=== PATIENT | male | born 1950 | race Two or more races ===

== ENCOUNTER → 2024-04-30 | Outpatient (CLI) | payer MEDICARE, BC, SELFPAY ==
[2024-04-30 09:51] LABS: Collection Type, Urine Clean Catch; Squamous Epithelial Cell,Urine 0 /hpf (0-5)
[2024-04-30 10:15] LABS: Basophils # (Auto) 0.1 Thou/mm3 (0.0-0.2); Basophils % (Auto) 2 % (0-2.5); Eosinophils # (Auto) 0.3 Thou/mm3 (0.0-0.5); Eosinophils % (Auto) 5 % (0-10); Hematocrit 46.4 % (41.0-53.0); Hemoglobin 15.6 g/dL (13.5-16.0); Immature Granulocytes % (Auto) 0 % (0-0); Immature Granulocytes Auto 0.01 Thou/mm3 (0.00-0.00); Lymphocytes # (Auto) 2.6 Thou/mm3 (1.0-4.8); Lymphocytes % (Auto) 47 % (10-50); Mean Corpuscular HGB Conc 33.6 g/dl (31.0-37.0); Mean Corpuscular Volume 89 fL (80-100); Monocytes # (Auto) 0.5 Thou/mm3 (0.0-0.8); Monocytes % (Auto) 8 % (0-12); Neutrophils # (Auto) 2.2 Thou/mm3 (1.8-7.7); Neutrophils % (Auto) 39 % (37-80); Nucleated Red Blood Cell % 0 /100 WBC (0); Platelet Count 197 Thou/mm3 (140-440); RDW Standard Deviation 46.8 fL (35.1-43.9); White Blood Count 5.7 Thou/mm3 (3.8-10.6)
[2024-04-30 10:29] LABS: Glucose Estimated Average 120 mg/dL (80-131); Hemoglobin A1C 5.8 % Hgb (4.8-6.0)
[2024-04-30 10:30] LABS: Bilirubin,Urine Negative (Negative); Blood,Urine Negative (Negative); Clarity,Urine Clear (Clear/Hazy); Color,Urine Lt-Yellow (Lt Yel-Yel); Glucose, Urine Negative (Negative); Ketones,Urine Negative (Negative); Leukocyte Esterase,Urine Negative (Negative); Nitrite,Urine Negative (Negative); Protein,Urine Negative (Neg - Trace); RBC,Urine 1 /hpf (0-3); Specific Gravity,Urine 1.015 (1.001-1.035); Urobilinogen,Urine Negative mg/dL (0.0-1.0); WBC,Urine < 1 /hpf (0-5)
[2024-04-30 10:31] LABS: PSA Medicare Annual Scrn 1.24 ng/mL (0-4.00)
[2024-04-30 10:48] LABS: Alanine Aminotransferase 30 U/L (10-49); Albumin/Globulin Ratio 2.1 (1.2-2.2); Anion Gap 8 (7-16); Aspartate Amino Transferase 30 U/L (0-34); BUN/Creatinine Ratio 16 Ratio (12-20); Bilirubin,Total 0.7 mg/dL (0.3-1.2); Blood Urea Nitrogen 19 mg/dL (9-23); Calcium 10.5 mg/dL (8.3-10.6); Calcium (Corrected) 10.5 mg/dL (8.5-10.1); Carbon Dioxide 28.8 mMol/L (20.0-31.0); Cardiac Risk Estimate 4.5 RATIO (4.0-6.7); Chloride 103 mMol/L (98-107); Cholesterol 161 mg/dL (132-200); Creatinine (Component) 1.2 mg/dL (0.6-1.3); Globulin 2.4 gm/dL (2.3-3.5); Glucose 106 mg/dL (74-106); HDL Cholesterol 36 mg/dL (40-60); LDL Cholesterol,Calculated 94 mg/dL (0-130); Osmolality,Calculated 281 (275-295); Potassium 4.4 mMol/L (3.4-5.1); Sodium 140 mMol/L (136-145); Thyroid Stimulating Hormone 2.92 uIU/mL (0.55-4.78); Total Protein 7.4 gm/dL (5.7-8.2); Triglycerides 156 mg/dL (30-150); eGFR > 60 See Note
[2024-04-30 11:30] LABS: Alkaline Phosphatase 48 U/L (46-116)
== END | disposition home or self-care (01) ==
PROVIDERS: PCP Internal Medicine; Referring Provider Internal Medicine; Visit Provider Internal Medicine
DX: I10 Essential (primary) hypertension (principal); E03.9 Hypothyroidism, unspecified; E78.5 Hyperlipidemia, unspecified; R73.09 Other abnormal glucose
CPT/HCPCS: 36415; 80053; 80061; 81001; 83036; 84153; 84443; 85025; G0103

== ENCOUNTER → 2024-05-15 | Outpatient (CLI) | payer MEDICARE, BC, SELFPAY ==
[2024-05-15 09:56] LABS: Vitamin D 25 Hydroxy Total 25.3 ng/mL (7.3-40.2)
[2024-05-15 10:01] LABS: Albumin, Serum 4.8 gm/dL (3.4-4.8); Anion Gap 8 (7-16); BUN/Creatinine Ratio 16 Ratio (12-20); Blood Urea Nitrogen 18 mg/dL (9-23); Calcium 9.9 mg/dL (8.3-10.6); Calcium (Corrected) 9.9 mg/dL (8.5-10.1); Carbon Dioxide 28.4 mMol/L (20.0-31.0); Chloride 105 mMol/L (98-107); Creatinine (Component) 1.1 mg/dL (0.6-1.3); Glucose 99 mg/dL (74-106); Osmolality,Calculated 283 (275-295); Phosphorous 3.1 mg/dL (2.4-5.1); Potassium 3.8 mMol/L (3.4-5.1); Sodium 141 mMol/L (136-145); eGFR > 60 See Note
== END | disposition home or self-care (01) ==
LOC: COPL 08:51
PROVIDERS: PCP Internal Medicine; Referring Provider Internal Medicine; Visit Provider Internal Medicine
DX: E83.52 Hypercalcemia (principal); E55.9 Vitamin D deficiency, unspecified
CPT/HCPCS: 36415; 80069; 82306; 83970

== ENCOUNTER → 2024-09-09 | Outpatient (CLI) | payer MEDICARE, BC, SELFPAY ==
--- NOTE | 2024-09-09 09:40 | XR_ITS ---
Examination: Abdomen AP single view Technique: AP portable supine abdomen, single view Exam date and time: September 09, 2024 0954 hours INDICATIONS: Nausea beginning 2 weeks ago. FINDINGS: Moderate stool throughout the colon. No obstruction. No free air. The osseous structures are intact IMPRESSION: Nonobstructive bowel gas pattern
[2024-09-09 11:36] LABS: Collection Type, Urine Clean Catch; Squamous Epithelial Cell,Urine 0 /hpf (0-5)
[2024-09-09 12:18] LABS: Bilirubin,Urine Negative (Negative); Blood,Urine Negative (Negative); Clarity,Urine Clear (Clear/Hazy); Color,Urine Lt-Yellow (Lt Yel-Yel); Glucose, Urine Negative (Negative); Ketones,Urine Negative (Negative); Leukocyte Esterase,Urine Negative (Negative); Nitrite,Urine Negative (Negative); PH,Urine 6.0 (5.0-7.0); Protein,Urine Negative (Neg - Trace); RBC,Urine 1 /hpf (0-3); Specific Gravity,Urine 1.014 (1.001-1.035); Urobilinogen,Urine Negative mg/dL (0.0-1.0); WBC,Urine 1 /hpf (0-5)
[2024-09-09 12:23] LABS: Alanine Aminotransferase 12 U/L (10-49); Albumin, Serum 4.7 gm/dL (3.4-4.8); Albumin/Globulin Ratio 1.7 (1.2-2.2); Alkaline Phosphatase 45 U/L (46-116); Amylase 79 U/L (30-118); Anion Gap 8 (7-16); Aspartate Amino Transferase 19 U/L (0-34); BUN/Creatinine Ratio 12 Ratio (12-20); Basophils # (Auto) 0.1 Thou/mm3 (0.0-0.2); Basophils % (Auto) 2 % (0-2.5); Bilirubin,Total 0.7 mg/dL (0.3-1.2); Blood Urea Nitrogen 13 mg/dL (9-23); Calcium 9.6 mg/dL (8.3-10.6); Calcium (Corrected) 9.6 mg/dL (8.5-10.1); Carbon Dioxide 28.4 mMol/L (20.0-31.0); Chloride 103 mMol/L (98-107); Creatinine (Component) 1.1 mg/dL (0.6-1.3); Eosinophils # (Auto) 0.2 Thou/mm3 (0.0-0.5); Eosinophils % (Auto) 4 % (0-10); Globulin 2.8 gm/dL (2.3-3.5); Glucose 99 mg/dL (74-106); Hematocrit 42.8 % (41.0-53.0); Hemoglobin 14.4 g/dL (13.5-16.0); Immature Granulocytes Auto 0.01 Thou/mm3 (0.00-0.00); Lipase 56 U/L (12-53); Lymphocytes # (Auto) 2.0 Thou/mm3 (1.0-4.8); Lymphocytes % (Auto) 38 % (10-50); Mean Corpuscular HGB Conc 33.6 g/dl (31.0-37.0); Mean Corpuscular Hemoglobin 29.4 pg (25.0-35.0); Mean Corpuscular Volume 88 fL (80-100); Monocytes # (Auto) 0.4 Thou/mm3 (0.0-0.8); Monocytes % (Auto) 8 % (0-12); Neutrophils # (Auto) 2.6 Thou/mm3 (1.8-7.7); Neutrophils % (Auto) 48 % (37-80); Nucleated Red Blood Cell # 0.00 Thou/mm3 (0.00-0.00); Nucleated Red Blood Cell % 0 /100 WBC (0); Osmolality,Calculated 277 (275-295); Platelet Count 259 Thou/mm3 (140-440); Potassium 4.0 mMol/L (3.4-5.1); RDW Standard Deviation 43.2 fL (35.1-43.9); Red Blood Count 4.89 Miln/mm3 (4.50-5.90); Sodium 139 mMol/L (136-145); Total Protein 7.5 gm/dL (5.7-8.2); White Blood Count 5.4 Thou/mm3 (3.8-10.6); eGFR > 60 See Note
== END | disposition home or self-care (01) ==
PROVIDERS: PCP Internal Medicine; Referring Provider Specialist; Visit Provider Radiology Diagnostic Radiology
DX: R11.0 Nausea (principal); R10.32 Left lower quadrant pain; R14.0 Abdominal distension (gaseous); R10.31 Right lower quadrant pain
CPT/HCPCS: 36415; 74018; 80053; 81001; 82150; 83690; 85025

== ENCOUNTER 2024-10-08 09:10 | Outpatient (RCR) | payer MEDICARE, BC, SELFPAY ==
--- NOTE | 2024-10-08 10:00 | XR_ITS ---
Examination: HIDA, hepatobiliary radioisotope scan Gallbladder ejection fraction study. Date and time of exam: October 08, 2024 0927 hours INDICATIONS: Upper abdominal pain and pressure beginning August 2024, hypertension Technique: 5.8 mCi of 99M Hepatolite administered. Serial imaging then obtained from immediate through 60 minutes. 1.1 mcg selective catheter Kinevac administered for gallbladder ejection fraction study. Findings: Radioisotope activity within the liver is reasonably homogenous. Gallbladder, common bile duct small bowel activity noted Impression: Gallbladder activity Normal gallbladder ejection fraction 57%
== END 2024-10-13 23:59 | disposition home or self-care (01) ==
LOC: SNUC 09:10
PROVIDERS: PCP Internal Medicine; Referring Provider Specialist; Visit Provider Specialist
DX: R10.32 Left lower quadrant pain (principal); R14.0 Abdominal distension (gaseous); R11.0 Nausea; R10.10 Upper abdominal pain, unspecified
CPT/HCPCS: 78227; A9537; J2805

== ENCOUNTER → 2024-10-17 | Outpatient (CLI) | payer MEDICARE, BC, SELFPAY ==
--- NOTE | 2024-10-17 13:47 | XR_ITS ---
Examination: Abdomen AP single view Technique: AP portable supine abdomen, single view Exam date and time: October 17, 2024 1439 hours INDICATIONS: Abdominal pain and distention beginning 2 months ago. FINDINGS: Moderate stool throughout the colon No obstruction No free air No renal or ureteral calculi The osseous structures are intact with mild narrowing hip joints IMPRESSION: Nonobstructive bowel gas pattern
== END | disposition home or self-care (01) ==
PROVIDERS: PCP Internal Medicine; Referring Provider Specialist; Visit Provider Specialist
DX: R14.0 Abdominal distension (gaseous) (principal); R10.13 Epigastric pain
CPT/HCPCS: 74018

== ENCOUNTER → 2024-10-25 | Outpatient (CLI) | payer MEDICARE, BC, SELFPAY ==
[2024-10-25 09:46] LABS: Basophils # (Auto) 0.1 Thou/mm3 (0.0-0.2); Basophils % (Auto) 1 % (0-2.5); Eosinophils # (Auto) 0.3 Thou/mm3 (0.0-0.5); Eosinophils % (Auto) 4 % (0-10); Hematocrit 42.6 % (41.0-53.0); Hemoglobin 14.1 g/dL (13.5-16.0); Immature Granulocytes Auto 0.01 Thou/mm3 (0.00-0.00); Lymphocytes # (Auto) 2.2 Thou/mm3 (1.0-4.8); Lymphocytes % (Auto) 34 % (10-50); Mean Corpuscular HGB Conc 33.1 g/dl (31.0-37.0); Mean Corpuscular Hemoglobin 29.1 pg (25.0-35.0); Mean Corpuscular Volume 88 fL (80-100); Monocytes # (Auto) 0.7 Thou/mm3 (0.0-0.8); Monocytes % (Auto) 10 % (0-12); Neutrophils # (Auto) 3.3 Thou/mm3 (1.8-7.7); Neutrophils % (Auto) 50 % (37-80); Nucleated Red Blood Cell # 0.00 Thou/mm3 (0.00-0.00); Nucleated Red Blood Cell % 0 /100 WBC (0); Platelet Count 230 Thou/mm3 (140-440); RDW Standard Deviation 47.0 fL (35.1-43.9); Red Blood Count 4.84 Miln/mm3 (4.50-5.90); White Blood Count 6.6 Thou/mm3 (3.8-10.6)
[2024-10-25 09:52] LABS: Collection Type, Urine Clean Catch; Squamous Epithelial Cell,Urine 0 /hpf (0-5)
[2024-10-25 09:54] LABS: Glucose Estimated Average 131 mg/dL (80-131); Hemoglobin A1C 6.2 % Hgb (4.8-6.0)
[2024-10-25 09:58] LABS: PSA Medicare Annual Scrn 1.52 ng/mL (0-4.00)
[2024-10-25 10:16] LABS: Alanine Aminotransferase 16 U/L (10-49); Albumin, Serum 4.9 gm/dL (3.4-4.8); Albumin/Globulin Ratio 1.7 (1.2-2.2); Alkaline Phosphatase 48 U/L (46-116); Anion Gap 9 (7-16); Aspartate Amino Transferase 24 U/L (0-34); BUN/Creatinine Ratio 11 Ratio (12-20); Bilirubin,Total 0.8 mg/dL (0.3-1.2); Blood Urea Nitrogen 12 mg/dL (9-23); Calcium 10.2 mg/dL (8.3-10.6); Calcium (Corrected) 10.2 mg/dL (8.5-10.1); Carbon Dioxide 27.8 mMol/L (20.0-31.0); Chloride 103 mMol/L (98-107); Creatinine (Component) 1.1 mg/dL (0.6-1.3); Globulin 2.9 gm/dL (2.3-3.5); Glucose 100 mg/dL (74-106); Osmolality,Calculated 279 (275-295); Potassium 4.6 mMol/L (3.4-5.1); Sodium 140 mMol/L (136-145); Thyroid Stimulating Hormone 0.28 uIU/mL (0.55-4.78); Total Protein 7.8 gm/dL (5.7-8.2); eGFR > 60 See Note
[2024-10-25 10:28] LABS: Cardiac Risk Estimate 4.0 RATIO (4.0-6.7); Cholesterol 119 mg/dL (132-200); HDL Cholesterol 30 mg/dL (40-60); LDL Cholesterol,Calculated 66 mg/dL (0-130); Triglycerides 117 mg/dL (30-150)
[2024-10-25 10:46] LABS: Bilirubin,Urine Negative (Negative); Blood,Urine Negative (Negative); Clarity,Urine Clear (Clear/Hazy); Color,Urine Lt-Yellow (Lt Yel-Yel); Glucose, Urine Negative (Negative); Ketones,Urine Negative (Negative); Leukocyte Esterase,Urine Negative (Negative); Nitrite,Urine Negative (Negative); PH,Urine 6.0 (5.0-7.0); Protein,Urine Negative (Neg - Trace); RBC,Urine 2 /hpf (0-3); Specific Gravity,Urine 1.021 (1.001-1.035); Urobilinogen,Urine Negative mg/dL (0.0-1.0); WBC,Urine 1 /hpf (0-5)
== END | disposition home or self-care (01) ==
LOC: COPL 08:56
PROVIDERS: PCP Internal Medicine; Referring Provider Specialist; Visit Provider Specialist
DX: I10 Essential (primary) hypertension (principal); E78.5 Hyperlipidemia, unspecified; E03.9 Hypothyroidism, unspecified; R73.09 Other abnormal glucose; Z12.5 Encounter for screening for malignant neoplasm of prostate
CPT/HCPCS: 36415; 80053; 80061; 81001; 83036; 84153; 84443; 85025; G0103

== ENCOUNTER → 2024-11-12 | Outpatient (CLI) | payer MEDICARE, BC, SELFPAY ==
--- NOTE | 2024-11-12 09:00 | XR_ITS ---
Examination: CT abdomen with intravenous contrast CT pelvis with intravenous contrast 2-D coronal reconstructions 2-D sagittal reconstructions Date and time of exam:November 12, 2024 0912 hours INDICATIONS: Epigastric pain beginning August 2024. CTDI: vol (mGy) 4.96 DLP: (mGycm) 289 Technique: Multiple axial sections of the abdomen and pelvis have been obtained. 64 slice high-resolution scanner used. 3 mm axial sections have been obtained, post intravenous injection 60 cc Isovue-370. 2-D sagittal, coronal reconstructions obtained. Low dose protocols were performed. One or more of the following dose reduction techniques were used; automated exposure control, adjustment of the mA and/or KV according to patient size, use of iterative reconstruction technique. Findings: No focal liver lesions No gallstones Mucosal is thickened in the stomach including antrum No pancreatic or adrenal mass No renal or ureteral calculi, no hydronephrosis Aortic calcification no aneurysmal dilatation No pericecal inflammatory change Colonic diverticulosis. Wall thickening in the sigmoid colon Transverse prostate dimension 5.8 cm. Enhancement in the central prostate 22 mm Contracted urinary bladder Advanced degenerative disc disease L5-S1 IMPRESSION: Gastritis pattern, clinical correlation advised No renal or ureteral calculi, no hydronephrosis Mild wall thickening the sigmoid colon, consider nonspecific colitis Moderate prostatomegaly, enhancement in the central prostate 22 mm, recommend correlation with PSA and consider transient rectal prostate sonography follow-up
== END | disposition home or self-care (01) ==
LOC: CCTX 08:17
PROVIDERS: PCP Internal Medicine; Referring Provider Specialist; Visit Provider Specialist
DX: K63.89 Other specified diseases of intestine (principal); N40.0 Benign prostatic hyperplasia without lower urinary tract symptoms
CPT/HCPCS: 74177; A4649; Q9967

== ENCOUNTER 2024-12-15 10:52 | Inpatient (IN) | payer MEDICARE, BC, SELFPAY ==
[2024-12-15] VITALS (8 sets, daily range): BP systolic 97–127; BP diastolic 64–77; PULSE 84–97; RESP 16–99; TEMP 36.6–36.7; O2SAT 98–99; BMI 19.3
--- NOTE | 2024-12-15 11:07 | EKG_ITS ---
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
--- NOTE | 2024-12-15 11:31 | EDNOTE_ITS ---
ED General RME/HPI General Chief complaint: Fever Stated complaint: FEVER/CHEST PAIN X 3 DAYS, UNABLE TO SLEEP Time Seen by Provider: 12/15/24 11:22 Arrival date/time: 12/15/24 10:52 RME / HPI RME / HPI narrative: Krunal is a 73 y/o male with PMHx of HTN and hypothyroidism? who comes in for evaluation of constant epigastric pain radiating to upper chest bilaterally, onset , with associated subjective fever, acid reflux and shortness of breath, has never happened before, slightly improved with ibuprofen for 1 day. Patient reports that he began to feel acid reflux on and has begun to develop a fever. To combat his pain, he decided to take ibuprofen which he said it improved for 1 day, however he has been taking ibuprofen 400 mg once to twice a day at this point and has not helped much. He says that he gets more short of breath on exertion, however he is unsure if he gets chest pain on exertion. 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 He says that he believes he is getting sick. He does not use oxygen at home. He has never had a heart attack. He has no family history of cardiac problems. He says he has been dealing with acid reflux for years. Denies any headache, numbness, tingling. He stopped drinking a very long time ago, no smoking history and does not do oral or IV drugs. He has never been told he has had a murmur. No other complaints at this time. Related Data Home Medications ?Medication ?Instructions ?Recorded ?Confirmed fenofibrate 160 mg tablet 160 mg PO QDAY 03/28/2303/07 levothyroxine 125 mcg tablet 125 mcg PO QDAY 03/28/23 03/28/23 losartan 25 mg tablet 25 mg PO QDAY 03/28/2303/28 Allergies Allergy/AdvReac Type Severity Reaction Status Date / Time No Known Allergies Allergy Verified 12/15/24 10:54 Review of Systems Review of Systems Narrative Review of Systems: 12 point ROS reviewed and is otherwise negative unless stated directly in the HPI ED Exam Narrative Physical exam: General: AAOx3, NAD, pleasant male, wears glasses HEENT: Moist mucous membranes, conjunctiva clear, EOMI, PERRLA, Cardiovascular: S1, S2, radial pulses +2 bilat, RRR, no murmur appreciated, no reproduction of chest pain upon palpation in bilateral anterior chest Pulmonary: CTAB bilat no cough, no wheezing GI: No tenderness to light or deep palpitation, no guarding, rigidity, rebound tenderness or distension Extremities: No presence of trace or pitting edema in lower extremities bilaterally, dorsalis pedis pulses +2 bilaterally Neuro: AAOx3, no focal motor or sensory deficits in the UE or LE bilat Psych: Good judgement, thought and behavior Course Quality Measures none Orders Category Date Time Status Bedside COVID-19 Antigen Test NOW Care 12/15/24 11:53 Active COVID-19 Screening Questionnaire NOW Care 12/15/24 13:25 Active EKG (ED ONLY) *Do not use* NOW Care 12/15/24 11:07 Completed EKG (ED ONLY) *Do not use* NOW Care 12/15/24 12:58 Completed Insert IV NOW Care 12/15/24 11:53 Active Consult to Cardiology Stat Cons 12/15/24 11:[address] abdomen pelvis wo con Stat Exams 12/15/24 13:17 Completed EKG (ED Only) Stat Exams 12/15/24 11:07 Draft EKG (ED Only) Stat Exams 12/15/24 12:58 Draft XR chest 1V portable Stat Exams 12/15/24 11:55 Completed C-Reactive Protein Stat Lab 12/15/24 12:05 Completed CBC Stat Lab 12/15/24 12:05 Completed CMP [Comprehensive Metabolic Panel] Stat Lab 12/15/24 12:05 Completed ESR [Sed Rate (ESR)] Stat Lab 12/15/24 12:05 Completed Influenza A & B Rapid Panel Stat Lab 12/15/24 12:17 Completed Lactic Acid [Lactate (Lactic Acid)] Stat Lab 12/15/24 12:05 Results Lactic Acid [Lactate (Lactic Acid)] Stat Lab 12/15/24 18:00 Ordered Lipase Stat Lab 12/15/24 12:05 Completed TSH [Thyroid Stimulating Hormone] Stat Lab 12/15/24 12:05 Completed Troponin I Stat Lab 12/15/24 12:05 Completed Troponin I Stat Lab 12/15/24 18:00 Ordered Famotidine Inj [Pepcid Inj] Med 12/15/24 13:03 Discontinued 20 mg IVP X1 ONE Ibuprofen Tab [Motrin Tab] Med 12/15/24 11:54 Discontinued 600 mg PO X1 ONE Pantoprazole [Protonix] Med 12/15/24 11:54 Discontinued 40 mg PO X1 ONE Sodium Chloride 0.9% 1000 ml [Ns] 1,000 ml Med 12/15/24 12:36 Discontinued IV 999 mls/hr mg Hyd/Al Hyd/Jayleen Susp [Maalox Susp] Med 12/15/24 13:03 Discontinued 30 ml PO X1 ONE Vital Signs Vital signs: Vital Signs Temperature 98.1 F 12/15/24 11:28 Pulse Rate 88 12/15/24 11:28 Respiratory Rate 16 12/15/24 11:28 Blood Pressure 127/74 12/15/24 11:28 Pulse Oximetry (%) 98 12/15/24 11:28 Oxygen Delivery Method Room Air 12/15/24 11:28 Discharge Plan Plan Patient Disposition: Admit Acute Care w/in Hospital Problem List Clinical Impression: Pericarditis MDM Narrative MDM hospital course (for use when minimal MDM required): 1200: Reviewed EKG which shows possible ST elevations in V2 and V3, in lead II there could be ST elevations, however there is no baseline EKG to compare this one to. We spoke with cardiology who recommends admission for rule out pericarditis. Will order basic labs including troponin, chest x-ray, and initiate ibuprofen and pantoprazole at this time. Due to patient's story, acute pericarditis will need to be ruled out, however patient's cardiac history is unknown as he has never gotten cardiac workup and has never seen a printer small print shop in the past. Patient is not complaining of intense chest pain at this time. Teto morrow does not have reproducible chest pain which is also concerning. 1308: Ordered repeat EKG. 1310: Spoke with primary hospitalist team who will review and discuss case for admission. 1317: Hospitalist team requesting abdomen pelvis CT for further evaluation of abdominal pain and lactic acidosis. 1359: CT Abd/pelvis w/o contrast shows possible pericardial effusion 27mm. Hospitalist team accepts patient for admission. EKG Interpretation EKG #1: EKG Interpretation: Sinus rhythm, heart rate 92, QT 315, possible ST elevations in V2, V3, V4, and lead 2 Medication Administration(s) Medication Administration History Acetaminophen (Acetaminophen 325 Mg Tablet) 650 mg PO Q6H PRN PRN Reason: Fever >100.4 or pain Stop: 01/14/25 13:58 Heparin Sodium (Porcine) (Heparin Sod Inj 5000 Unit/Ml Vial) 5,000 unit SC Q8HR ERICA Stop: 12/29/24 14:09 Ondansetron HCl (Ondansetron Inj 2 Mg/Ml Inj 2 Ml) 4 mg IVP Q6H PRN; Protocol PRN Reason: NAUSEA OR VOMITING Stop: 01/14/25 13:58 Sennosides (Senna Tablet) 1 tab PO QDAY PRN; Protocol PRN Reason: constipation Stop: 01/14/25 13:58 Discontinued Medications Al Hydrox/Mg Hydrox/Simethicone (Mg Hyd/Al Hyd/Jayleen (Maalox Reg) Susp 30 Ml Udc) 30 ml PO X1 ONE Stop: 12/15/24 13:04 Last Admin: 12/15/24 13:26 Dose: 30 ml Documented By: BD Famotidine (Famotidine Inj 10 Mg/Ml Vial 2 Ml) 20 mg IVP X1 ONE Stop: 12/15/24 13:04 Last Admin: 12/15/24 13:26 Dose: 20 mg Documented By: BD Sodium Chloride (Ns) 1,000 mls @ 999 mls/hr IV .Q1H1M ONE Stop: 12/15/24 13:36 Last Admin: 12/15/24 13:26 Dose: 999 mls/hr Documented By: BD Ibuprofen (Ibuprofen Tab 600 Mg Tablet) 600 mg PO X1 ONE Stop: 12/15/24 11:55 Last Admin: 12/15/24 12:01 Dose: 600 mg Documented By: GM Pantoprazole Sodium (Pantoprazole 40 Mg Tablet) 40 mg PO X1 ONE Stop: 12/15/24 11:55 Last Admin: 12/15/24 12:00 Dose: 40 mg Documented By: GM Consultations/Discussions re: Management Consult #1: Date/time: 12/15/24 1:10 pm Physician, specialty, service, details: 1200: We spoke with cardiology who recommends admission for rule out pericarditis Consult #2: Date/time: 12/15/24 1:11 pm Physician, specialty, service, details: 1310: Spoke with primary hospitalist team who reviewed case and discussed case for admission. 1317: Hospitalist team requesting abdomen pelvis CT for further evaluation of abdominal pain and lactic acidosis. 1359: Hospitalist team accepts patient for admission. Diagnosis Diagnoses ruled out and/or further discussions: Atypical chest pain, pericarditis, costochondritis, ACS, pulmonary embolus,
--- NOTE | 2024-12-15 11:55 | XR_ITS ---
EXAMINATION: AP chest single view TECHNIQUE: AP portable semiupright chest single view Date and time: December 15, 2024, 1201 hours INDICATIONS: Chest pain today. FINDINGS: Minor prominence left ventricle No pneumonia or pulmonary edema. The osseous structures are intact IMPRESSION: No active disease
[2024-12-15] MEDS: PANTOPRAZOLE 40 MG TABLET PO (12:00)
[2024-12-15] MEDS: IBUPROFEN TAB 600 MG TABLET PO (12:01)
[2024-12-15 12:23] LABS: Lactate (Lactic Acid) 2.1 mMol/L (0.4-2.0)
[2024-12-15 12:49] LABS: Influenza A Ag Negative; Influenza B Ag Negative
[2024-12-15 12:49] LABS: Alanine Aminotransferase 18 U/L (10-49); Albumin, Serum 4.5 gm/dL (3.4-4.8); Albumin/Globulin Ratio 1.5 (1.2-2.2); Alkaline Phosphatase 41 U/L (46-116); Anion Gap 12 (7-16); Aspartate Amino Transferase 24 U/L (0-34); BUN/Creatinine Ratio 20 Ratio (12-20); Basophils # (Auto) 0.0 Thou/mm3 (0.0-0.2); Basophils % (Auto) 0 % (0-2.5); Bilirubin,Total 0.8 mg/dL (0.3-1.2); Blood Urea Nitrogen 32 mg/dL (9-23); Calcium 9.5 mg/dL (8.3-10.6); Calcium (Corrected) 9.5 mg/dL (8.5-10.1); Carbon Dioxide 20.7 mMol/L (20.0-31.0); Chloride 98 mMol/L (98-107); Creatinine (Component) 1.6 mg/dL (0.6-1.3); Eosinophils # (Auto) 0.3 Thou/mm3 (0.0-0.5); Eosinophils % (Auto) 3 % (0-10); Estimated Creatinine Clearance 31.7 mL/min (>60); Globulin 3.0 gm/dL (2.3-3.5); Glucose 109 mg/dL (74-106); Hematocrit 37.8 % (41.0-53.0); Hemoglobin 12.9 g/dL (13.5-16.0); Immature Granulocytes Auto 0.04 Thou/mm3 (0.00-0.00); Lipase 61 U/L (12-53); Lymphocytes # (Auto) 1.5 Thou/mm3 (1.0-4.8); Lymphocytes % (Auto) 15 % (10-50); Mean Corpuscular HGB Conc 34.1 g/dl (31.0-37.0); Mean Corpuscular Hemoglobin 28.3 pg (25.0-35.0); Mean Corpuscular Volume 83 fL (80-100); Monocytes # (Auto) 1.0 Thou/mm3 (0.0-0.8); Monocytes % (Auto) 10 % (0-12); Neutrophils # (Auto) 7.2 Thou/mm3 (1.8-7.7); Neutrophils % (Auto) 71 % (37-80); Nucleated Red Blood Cell # 0.00 Thou/mm3 (0.00-0.00); Nucleated Red Blood Cell % 0 /100 WBC (0); Osmolality,Calculated 270 (275-295); Platelet Count 227 Thou/mm3 (140-440); Potassium 3.5 mMol/L (3.4-5.1); RDW Standard Deviation 46.3 fL (35.1-43.9); Red Blood Count 4.56 Miln/mm3 (4.50-5.90); Sodium 131 mMol/L (136-145); Thyroid Stimulating Hormone 0.71 uIU/mL (0.55-4.78); Total Protein 7.5 gm/dL (5.7-8.2); Troponin I < 0.020 ng/mL (0.0-0.045); White Blood Count 10.0 Thou/mm3 (3.8-10.6); eGFR 45 See Note
--- NOTE | 2024-12-15 12:58 | EKG_ITS ---
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
--- NOTE | 2024-12-15 13:17 | XR_ITS ---
Examination: CT abdomen and pelvis without contrast. Coronal 3-D reconstructions. Sagittal 2-D reconstructions. Date and time of exam: December 15, 2024, 1356 hours, comparison 11/12/2024 INDICATIONS: Epigastric pain today CTDI: vol (mGy): 6.24 DLP: (mGycm): 346 Technique: Axial images of the abdomen have been obtained, 3 mm slice thickness Intravenous contrast material has not been administered. Low dose protocols were performed. One or more of the following dose reduction techniques were used; automated exposure control, adjustment of the mA and/or KV according to patient size, use of iterative reconstruction technique. Findings: Pericardial effusion measuring up to 27 mm No visualized liver or splenic lesion No gallstones No pancreatic or adrenal mass. No renal or ureteral calculi Aorta normal size Normal appendix Colonic diverticulosis, no diverticulitis Urinary bladder intact Marked prostatomegaly transverse dimension 5.8 cm No definite diverticulitis Prominent osteopenia IMPRESSION: Pericardial effusion No pancreatic edema No renal or ureteral calculi, no hydronephrosis No CT findings of appendicitis bowel obstruction or diverticulitis
[2024-12-15] MEDS: FAMOTIDINE INJ 10 MG/ML VIAL 2 ML 20 MG IVP (13:26)
[2024-12-15] MEDS: MG HYD/AL HYD/SIME (Maalox Reg) SUSP 30 ML UDC PO (13:26)
[2024-12-15] MEDS: SODIUM CHLORIDE 0.9% 1000 ML 1,000 ML 999 ML IV (13:26)
--- NOTE | 2024-12-15 14:12 | ESHP_ITS ---
<Statement entered by Gabe Venegas MD - 12/15/24 18:55> I have discussed and was present for the essential components of the history, physical examination, diagnosis, and treatment plan with the resident. I agree with the patient's care as documented by the resident and amended herein by me. Gabe Venegas MD FACP. Documentation for date of: 12/15/24 Senior resident attestation: Mr. Arthur is a 73-year-old male who presented to the ER complaining of epigastric discomfort and fever which started Monday. He also reported shortness of breath on exertion associated with pain. EKG was concerning for diffuse ST segment elevations in all leads, absence of reciprocal changes, ER consulted chief librarian branch or department Dr. Sifuentes who recommended admission the patient for management of possible acute pericarditis. Other problems of note include acute kidney injury, slight lactic acidosis. Bedside echocardiogram showed moderate pericardial effusion, good LV contractility. CT abdomen pelvis was done to evaluate for intra-abdominal source of fever in the setting of slightly elevated lactic acid and lipase. CT shows 27 mm pericardial effusion. No evidence of pancreatitis. Noted elevated ESR and CRP, patient received 1 dose of ibuprofen 600 mg in the ER, he has also been taking ibuprofen at home for the past 3 days with some relief of symptoms. Added colchicine 0.6 mg daily, will avoid loading dose due to concern for worsening KORIN. #Acute pericarditis ? possibly due to viral illness, negative troponins, pending BNP, trend CRP daily, holding off on ibuprofen due to concern for KORIN, colchicine 0.6 mg daily. #Hypoosmolar hyponatremia? sodium 131, in the setting of acute kidney injury, will trend serum sodium, no mental status changes, continue to observe, urinalysis and urine electrolytes ordered. #History of hypothyroidism #History of hypertension #History hyperlipidemia Patient evaluated and examined at the bedside, plan of care discussed with rest of the team including my attending physician, except as noted. Quresh PGY3 HPI History of Present Illness Chief complaint: chest tightness and abdominal pain History of present illness: Kassie Johnson 73M pmhx significant for HTN, HLD, and hypothyroidism who presents to [facility] ED 12/15 for worsening abdominal pain, chest tightness and SOB. Patient reports since 12/11 has been experiencing chest tightness and shortness of breath on short distances with 3 days of fever. Describes pain as tightness over bilateral chest, worsening on deep inspiration with pain felt on L chest but not positional dependent. Initially pain resolved with ibuprofen 400 mg, but later stopped working. Denies exacerbation while laying flat or relief while sitting up or bending over or reproducible with palpation. Denies any recent illness or travel. Denies urinary symptoms, N/V, diarrhea or URI symptoms. Reports abdominal pain with gas since 09/2024 that has progressively gotten worse, and last night unable to sleep due to the pain. Tried OTC stomach medications, none have helped. Last EGD a year ago, was told he had two growths that were normal. Currently, patient endorses chest tightness and abdominal pain. Denies fever of chills. PMHx: as above Surgical Hx: bilateral cataract surgery FHx: No familial cardiac disease, sister breast CA, brother prostate CA, brother esophageal CA Social Hx: denies tobacco and recreational/illicit drug use. Occasional alcohol use in teens. Allergies: NKDA Medications: Losartan 25 mg QD, levothyroxine 112 mcg QD, fenofibrate 160 mg QD, latanoprost 0.005% drops both eyes qhs, dorzolamide-timolol ophthal solution in both eyes BID In ED, BP 127/74 HR 88, RR 16, afebrile, satting 98% RA, WBC 10, Hgb 12.9, ESR 119, CRP >10, Na 131, K 3.5, BUN 32, Cr 1.6 (BL 1.1), lactic 2.1, trops neg, lipase 61, TSH 0.71 wnl . In ED, given 1L NS, Maalox, pantoprazole 40 mg x1, famotidine 20 mg x1 and ibuprofen 600 mg x1. EKG shows diffuse ST segment elevation in all leads. CXR no active disease. CTAP 27mm pericardial effusion, no pancreatic edema, no renal or uretral calculi, no hydronephrosis, no CT findings of appendicitis, bowel obstruction or diverticulitis. Patient was admitted for further workup for chest tightness with concern for pericarditis. Review of Systems Review of Systems Systems Reviewed: All systems reviewed, normal except as documented Exam Vital Signs Temp Pulse Resp BP Pulse Ox O2 Del Method 97.9 F 85 19 112/72 98 Room Air 12/15/24 12:02 12/15/24 12:02 12/15/24 12:02 12/15/24 12:02 12/15/24 11:28 12/15/24 12:02 Narrative Exam GENERAL: AOx3, no acute distress, shallow breathing due to pain HEENT: mucous membranes moist, bilateral sclera anicteric CARDIOVASCULAR: regular rate and rhythm, S1/S2 present, no murmurs appreciated PULMONARY: clear to auscultation bilaterally, no rales/rhonchi/wheezes ABDOMINAL: soft, non-tender, non-distended, no rebound/guarding, bowel sounds present EXTREMITIES: no peripheral edema SKIN: warm and dry, intact, no rashes NEURO: CN II-XII grossly intact, no focal deficits, alert, following commands Results: Labs 12/15/24 12:05 12/15/24 12:05 Labs: Short CBC 12/15/24 Range/Units 12:05 WBC 10.0 (3.8-10.6) Thou/mm3 Hgb 12.9 L (13.5-16.0) g/dL Hct 37.8 L (41.0-53.0) % Plt Count 227 (140-440) Thou/mm3 BMP 12/15/24 12:05 Sodium 131 L Potassium 3.5 Chloride 98 Carbon Dioxide 20.7 BUN 32 H Creatinine 1.6 H Glucose 109 H Calcium 9.5 Cardiac Enzymes 12/15/24 Range/Units 12:05 Troponin I < 0.020 (0.0-0.045) ng/mL Liver Function 12/15/24 Range/Units 12:05 Total Bilirubin 0.8 (0.3-1.2) mg/dL AST 24 (0-34) U/L ALT 18 (10-49) U/L Alkaline Phosphatase 41 L (46-116) U/L Albumin 4.5 (3.4-4.8) gm/dL Quality Measures Quality Measures VTE prophylaxis Advance care planning discussed with:: patient Medications Home Medications and Allergies Home Medications ?Medication ?Instructions ?Recorded ?Confirmed ?Type fenofibrate 160 mg tablet 160 mg PO QDAY 03/28/2303/07 History levothyroxine 125 mcg tablet 125 mcg PO QDAY 03/28/23 03/28/23 History losartan 25 mg tablet 25 mg PO QDAY 03/28/2303/28 History Allergies Allergy/AdvReac Type Severity Reaction Status Date / Time No Known Allergies Allergy Verified 12/15/24 10:54 Visit Medications Acetaminophen (Acetaminophen 325 Mg Tablet) 650 mg PO Q6H PRN PRN Reason: Fever >100.4 or pain Stop: 01/14/25 13:58 Heparin Sodium (Porcine) (Heparin Sod Inj 5000 Unit/Ml Vial) 5,000 unit SC Q8HR ERICA Stop: 12/29/24 14:09 Ondansetron HCl (Ondansetron Inj 2 Mg/Ml Inj 2 Ml) 4 mg IVP Q6H PRN; Protocol PRN Reason: NAUSEA OR VOMITING Stop: 01/14/25 13:58 Sennosides (Senna Tablet) 1 tab PO QDAY PRN; Protocol PRN Reason: constipation Stop: 01/14/25 13:58 Discontinued Medications Al Hydrox/Mg Hydrox/Simethicone (Mg Hyd/Al Hyd/Jayleen (Maalox Reg) Susp 30 Ml Udc) 30 ml PO X1 ONE Stop: 12/15/24 13:04 Last Admin: 12/15/24 13:26 Dose: 30 ml Famotidine (Famotidine Inj 10 Mg/Ml Vial 2 Ml) 20 mg IVP X1 ONE Stop: 12/15/24 13:04 Last Admin: 12/15/24 13:26 Dose: 20 mg Sodium Chloride (Ns) 1,000 mls @ 999 mls/hr IV .Q1H1M ONE Stop: 12/15/24 13:36 Last Admin: 12/15/24 13:26 Dose: 999 mls/hr Ibuprofen (Ibuprofen Tab 600 Mg Tablet) 600 mg PO X1 ONE Stop: 12/15/24 11:55 Last Admin: 12/15/24 12:01 Dose: 600 mg Pantoprazole Sodium (Pantoprazole 40 Mg Tablet) 40 mg PO X1 ONE Stop: 12/15/24 11:55 Last Admin: 12/15/24 12:00 Dose: 40 mg Assessment & Plan Plan Kassie Johnson 73M pmhx significant for HTN, HLD, GERD, and hypothyroidism who presents to [facility] ED 12/15 for worsening abdominal pain, chest tightness and SOB, admitted for pericarditis. #Pericarditis likely 2/2 viral Presented with 5 days of worsening chest tightness and SOB, worse on inspiration with localization to L chest. Not positional dependent. Denies recent URI, urinary symptoms or diarrhea. EKG showed diffuse ST segment elevation in all leads. ESR 119, CRP >10. trops negative Ddx: likely viral pericarditis with subsequent pericardial effusion. Less likely uremic pericarditis as currently BUN slightly elevated but no hx of BUN elevation. Plan: - Cardiology consulted, recs appreciated - Avoiding ibuprofen at this time due to KORIN 1.5 and CrCl 31 - Start colchicine 0.6 mg QD and PO pantoprazole 40 mg QD - F/u BNP #KORIN, likely prerenal Presented with Cr 1.6 with eGFR 45 with BL Cr 1.1 and eGFR >60. No hx of CKD. Likely 2/2 poor PO intake 2/2 abdominal pain. s/p 1L NS in ED Plan: - CTM renal panel - Avoid nephrotoxic medications unless benefits outweight risks, and renally dose #Lactic acidosis On admission lactic acid 2.1. CTAP as above with benign abdominal findings except for pericardial effusion. Ddx: possible pericardial effusion contributing to decrease cardiac output vs bowel ischemia s/p 1L NS in ED Plan: - F/u repeat lactic acid in PM - Consider FOBT if persistent lactic acidosis #HTN #HLD Home meds include Losartan 25 mg QD and fenofibrate 160 mg QD. Plan: - Hold losartan iso KORIN and fenofibrate #Hypothyroidism Plan: - Continue home levothyroxine 112 mcg ACBR #Hyponatremia Admission Na 131. Likely 2/2 dehydration. s/p 1L NS in ED Plan: - Consider Ulytes if persistent Hospital management: Lines: PIV Diet: Cardiac diet, NPO at midnight iso possible cardiac intervention Bowel: Senna prn GI prophylaxis: PO pantoprazole 40 mg QD DVT prophylaxis: heparin q8h Disposition: telemetry, pericarditis tx CODE STATUS: FULL CODE Plan of care discussed with attending Dr. Venegas, and PGY-3 Dr. Holley. Marce Díaz, DO PGY-1 Internal Medicine
[2024-12-15 14:18] LABS: Sed Rate (ESR) 119 mm/hr (0-20)
[2024-12-15 14:22] LABS: C-Reactive Protein > 10.0 mg/dL (0.0-0.9)
--- NOTE | 2024-12-15 14:27 | ECHO_ITS ---
Transthoracic Echo Report Ht (in): 66 Wt (lb): 120 Exam Location: [facility] Status: Inpatient Equipment Or Machinery Cleaner: Corinne Michelle Indications: Procedure Performed: BP: 104 / 60 HR: 83 MEASUREMENTS (Male / Female) Normal Values 2D ECHO LV Diastolic Diameter PLAX 3.8 cm 4.2 - 5.9 / 3.9 - 5.3 cm LV Systolic Diameter PLAX 2.4 cm IVS Diastolic Thickness 1.1 cm 0.6 - 1.0 / 0.6 - 0.9 cm LVPW Diastolic Thickness 1.5 cm 0.6 - 1.0 / 0.6 - 0.9 cm LV Relative Wall Thickness 0.7 LVOT Diameter 1.9 cm LA Volume Index 25.3 cm?/m? 16 - 28 cm?/m? Ascending Aorta Diameter 2.8 cm M-MODE AV Cusp Separation MM 1.2 cm DOPPLER AV Peak Velocity 140.0 cm/s AV Peak Gradient 7.8 mmHg AV Mean Gradient 5.0 mmHg AV Velocity Time Integral 26.3 cm LVOT Peak Velocity 96.6 cm/s LVOT Peak Gradient 3.7 mmHg LVOT Velocity Time Integral 20.4 cm LVOT Cardiac Index 3027.3 cm?/min?m? AV Area Cont Eq vti 2.2 cm? AV Area Cont Eq pk 2.0 cm? MV Area PHT 5.0 cm? Mitral E Point Velocity 67.5 cm/s Mitral A Point Velocity 56.6 cm/s Mitral E to A Ratio 1.2 LV E' Lateral Velocity 8.5 cm/s Mitral E to LV E' Lateral Ratio 8.0 LV E' Septal Velocity 6.7 cm/s Mitral E to LV E' Septal Ratio 10.0 TR Peak Velocity 268.0 cm/s TR Peak Gradient 28.7 mmHg PV Peak Velocity 90.9 cm/s PV Peak Gradient 3.3 mmHg FINDINGS Left Ventricle Normal left ventricular size and systolic function with no obvious regional wall motion abnormalities.Mild LVH. Normal left ventricular diastolic filling pattern for age. The ejection fraction is visually estimated at 50- 55%. Right Ventricle The right ventricle is normal in size and systolic function. The estimated right ventricular systolic pressure, 32 mmHg with RAP 3. Left Atrium The left atrium is normal by two-dimensional, color flow and Doppler imaging with no structural abnormalities, no thrombus formation present. Right Atrium The right atrium is normal by two-dimensional imaging, color flow and Doppler imaging with no structural abnormalities, no thrombus formation present. Atrial Septum The interatrial septum appears normal with no evidence of a shunt. Aorta The aorta is normal by two-dimensional, color flow and Doppler interrogation. Mitral Valve The mitral valve is normal by two-dimensional, color flow and Doppler interrogation. Mild mitral regurgitation. Aortic Valve Aortic valve sclerosis without stenosis.Mild aortic valve regurgitation. Tricuspid Valve The tricuspid valve is normal by two-dimensional, color flow and Doppler interrogation. There is mild tricuspid valve regurgitation. Pulmonic Valve The pulmonic valve is not well visualized. There is no significant pulmonic valve regurgitation. Vessels The pulmonary artery appears normal. The inferior vena cava pulmonary and hepatic veins appear normal. Pericardium There is a small pericardial effusion without cardiac tamponade. CONCLUSIONS Indication: C/F pericarditis Mild LVH. Normal left ventricular size and function. Estimated EF 50-55%. Normal right ventricular size and function. RVSP 32mmHg with RAP 3. Aortic valve sclerosis without stenosis Mild mitral, tricuspid and aortic regurgitation noted. There is a small pericardial effusion without cardiac tamponade. Ahsan Sifuentes (Electronically Signed) Final Date: 18 December 2024 11:59
[2024-12-15 15:22] LABS: Reflex Lactate? Y
[2024-12-15 15:33] LABS: B-Type Natriuretic Peptide 142 pg/mL (0-100)
--- NOTE | 2024-12-15 15:35 | PC.CC ---
Patient is a 73 year-old male who presents to the hospital for chest pain. BELL CLEANERBrie made [id number] contact with patient introduced self, role, and reason for visit. Patient appeared alert and oriented to self, location, and situation. BELL CLEANER, discussed limits of confidentiality. At bedside was patient's , Jacqueline Johnson who patient provided consent to remain in the room during assessment. Patient made appropriate eye contact and engaged in initial assessment. ? Patient confirmed information on demographics and reports to living at home with his . Per patient, in the event that he is unable to make his own medical decisions his medical decision maker is his Jacqueline Johnson. Patient reports at home he ambulates independently and completes his own ADLs with no assistance. Patient does not require the use of any DME or oxygen. Patient's primary provider is Niraj Kay for prescription medications he uses [facility]. Upon discharge patient plans to return back home. academic services coordinator to follow up with any discharge needs.
[2024-12-15 15:46] LABS: Lactic Acid, 3 HR 1.1 mMol/L (0.4-2.0)
[2024-12-15] MEDS: HEPARIN SOD INJ 5000 UNIT/ML VIAL SC ×2 (16:27→21:32)
[2024-12-15] MEDS: COLCHICINE 0.6 MG TABLET PO (16:28)
[2024-12-15 17:20] LABS: Collection Type, Urine Voided
[2024-12-15 17:25] LABS: Chloride,Urine Random < 20.0 mMol/L (55.0-125.0); Potassium,Urine Random 11 mMol/L (12-62); Sodium,Urine Random < 15.0 mMol/L (20.0-110.0)
[2024-12-15 17:26] LABS: Bilirubin,Urine Negative (Negative); Blood,Urine Negative (Negative); Clarity,Urine Clear (Clear/Hazy); Color,Urine Lt-Yellow (Lt Yel-Yel); Glucose, Urine Negative (Negative); Ketones,Urine Negative (Negative); Leukocyte Esterase,Urine Negative (Negative); Nitrite,Urine Negative (Negative); PH,Urine 6.0 (5.0-7.0); Protein,Urine Negative (Neg - Trace); RBC,Urine 1 /hpf (0-3); Specific Gravity,Urine 1.012 (1.001-1.035); Squamous Epithelial Cell,Urine < 1 /hpf (0-5); Urobilinogen,Urine Negative mg/dL (0.0-1.0); WBC,Urine < 1 /hpf (0-5)
[2024-12-15 18:16] LABS: Lactate (Lactic Acid) 1.0 mMol/L (0.4-2.0)
[2024-12-15 18:36] LABS: Troponin I < 0.020 ng/mL (0.0-0.045)
--- NOTE | 2024-12-15 20:33 | PC.NURSE ---
REPORT GIVEN TO FLOOR RN MALI
[2024-12-16] VITALS (9 sets, daily range): BP systolic 93–125; BP diastolic 60–70; PULSE 72–90; RESP 16–100; TEMP 36.2–36.5; O2SAT 96–98
[2024-12-16] MEDS: MORPHINE SULF INJ 4 MG/ML VIAL 0.5 MG IVP (02:23)
[2024-12-16] MEDS: LEVOTHYROXINE SODIUM 112 MCG TABLET PO (05:32)
[2024-12-16 06:54] LABS: INR 1.1 (0.9-1.3); Partial Thromboplastin Time 35.2 Seconds (22.0-36.0); Prothrombin Time 11.7 Seconds (9.0-12.2)
[2024-12-16 06:57] LABS: Basophils # (Auto) 0.0 Thou/mm3 (0.0-0.2); Basophils % (Auto) 0 % (0-2.5); Eosinophils # (Auto) 0.3 Thou/mm3 (0.0-0.5); Eosinophils % (Auto) 4 % (0-10); Hematocrit 35.0 % (41.0-53.0); Hemoglobin 11.7 g/dL (13.5-16.0); Immature Granulocytes Auto 0.02 Thou/mm3 (0.00-0.00); Lymphocytes # (Auto) 1.8 Thou/mm3 (1.0-4.8); Lymphocytes % (Auto) 25 % (10-50); Mean Corpuscular HGB Conc 33.4 g/dl (31.0-37.0); Mean Corpuscular Hemoglobin 28.0 pg (25.0-35.0); Mean Corpuscular Volume 84 fL (80-100); Monocytes # (Auto) 0.7 Thou/mm3 (0.0-0.8); Monocytes % (Auto) 10 % (0-12); Neutrophils # (Auto) 4.4 Thou/mm3 (1.8-7.7); Neutrophils % (Auto) 61 % (37-80); Nucleated Red Blood Cell # 0.00 Thou/mm3 (0.00-0.00); Nucleated Red Blood Cell % 0 /100 WBC (0); Platelet Count 271 Thou/mm3 (140-440); RDW Standard Deviation 46.5 fL (35.1-43.9); Red Blood Count 4.18 Miln/mm3 (4.50-5.90); White Blood Count 7.2 Thou/mm3 (3.8-10.6)
[2024-12-16 07:17] LABS: Alanine Aminotransferase 18 U/L (10-49); Albumin, Serum 4.0 gm/dL (3.4-4.8); Albumin/Globulin Ratio 1.5 (1.2-2.2); Alkaline Phosphatase 43 U/L (46-116); Anion Gap 11 (7-16); Aspartate Amino Transferase 30 U/L (0-34); BUN/Creatinine Ratio 21 Ratio (12-20); Bilirubin,Total 0.4 mg/dL (0.3-1.2); Blood Urea Nitrogen 23 mg/dL (9-23); C-Reactive Protein 21.5 mg/dL (0.0-0.9); Calcium 9.1 mg/dL (8.3-10.6); Calcium (Corrected) 9.1 mg/dL (8.5-10.1); Carbon Dioxide 21.9 mMol/L (20.0-31.0); Chloride 103 mMol/L (98-107); Creatinine (Component) 1.1 mg/dL (0.6-1.3); Estimated Creatinine Clearance 46.2 mL/min (>60); Globulin 2.6 gm/dL (2.3-3.5); Glucose 120 mg/dL (74-106); Magnesium 2.2 mg/dL (1.6-2.6); Osmolality,Calculated 276 (275-295); Potassium 3.7 mMol/L (3.4-5.1); Sodium 136 mMol/L (136-145); Total Protein 6.6 gm/dL (5.7-8.2); eGFR > 60 See Note
--- NOTE | 2024-12-16 07:23 | PD.IMCONS ---
HPI Data of Consult Requesting Physician: Gabe Venegas MD Primary Care Provider: Enrico Kay MD Consult Narrative History of present illness: This is a 73M pmhx significant for HTN, HLD, and hypothyroidism Patient was seen in the emergency room with increasing shortness of breath chest pain, abdominal pain Further workup revealed that he has small to moderate posterior pericardial effusion Pulmonary embolism Cardiology consultation requested Patient blood pressure is 110/60 pulse is 72 Echocardiographic examination shows normal LV size and function Pericardial effusion is mostly posterior behind the LV There is no pericardial effusion noted anterior to the RV cc:: cc: Gabe Venegas MD Meds Home Medications and Allergies Home Medications ?Medication ?Instructions ?Recorded ?Confirmed ?Type fenofibrate 160 mg tablet 160 mg PO QDAY 03/28/23 12/15/24 History losartan 25 mg tablet 25 mg PO QDAY 03/28/23 12/15/24 History dorzolamide 22.3 mg-timolol 6.8 1 drp ophthalmic (eye) Q12H 12/15/24 12/15/24 History mg/mL eye drops latanoprost 0.005 % eye drops 1 drp ophthalmic (eye) QPM 12/15/24 12/15/24 History levothyroxine 112 mcg tablet 112 mcg PO QDAY 12/15/24 12/15/24 History Allergies Allergy/AdvReac Type Severity Reaction Status Date / Time No Known Allergies Allergy Verified 12/15/24 10:54 Exam Vital Signs Temp Pulse Resp BP Pulse Ox O2 Del Method 97.4 F 72 18 104/60 97 Room Air 12/16/24 04:00 12/16/24 04:00 12/16/24 04:00 12/16/24 04:00 12/16/24 04:00 12/16/24 04:00 Routine HEENT Exam Head: Present normocephalic and atraumatic Eye: Present EOMI and PERRL ENT: Present mucous membranes moist Routine Neck Exam Neck: Present supple and trachea midline Routine Respiratory Exam Respiratory: Present chest non-tender, lungs clear, normal breath sounds and no resp distress Routine Cardiovascular Exam Cardiovascular: Present RRR Routine Abdominal Exam Abdominal: Present soft and normoactive bowel sounds Routine Extremities Exam Extremities: Present full ROM Routine Skin Exam Skin: Present intact, dry and warm Routine Neurological Exam Neurological: Present alert, oriented X3 and CN II-XII intact Routine Psychiatric Exam Psychiatric: Present normal affect and normal thought process Results Labs 12/16/24 05:59 12/16/24 05:59 Labs: Short CBC 12/15/24 12/16/24 Range/Units 12:05 05:59 WBC 10.0 7.2 (3.8-10.6) Thou/mm3 Hgb 12.9 L 11.7 L (13.5-16.0) g/dL Hct 37.8 L 35.0 L (41.0-53.0) % Plt Count 227 271 D (140-440) Thou/mm3 BMP 12/15/24 12/16/24 12:05 05:59 Sodium 131 L 136 Potassium 3.5 3.7 Chloride 98 103 Carbon Dioxide 20.7 21.9 BUN 32 H 23 Creatinine 1.6 H 1.1 D Glucose 109 H 120 H Calcium 9.5 9.1 Cardiac Enzymes 12/15/24 12/15/24 Range/Units 12:05 18:10 Troponin I < 0.020 < 0.020 (0.0-0.045) ng/mL Liver Function 12/15/24 12/16/24 Range/Units 12:05 05:59 Total Bilirubin 0.8 0.4 (0.3-1.2) mg/dL AST 24 30 (0-34) U/L ALT 18 18 (10-49) U/L Alkaline Phosphatase 41 L 43 L (46-116) U/L Albumin 4.5 4.0 D (3.4-4.8) gm/dL Urine 12/15/24 Range/Units 17:10 Urine Color Lt-Yellow (Lt Yel-Yel) Urine Clarity Clear (Clear/Hazy) Urine pH 6.0 (5.0-7.0) Ur Specific [place] 1.012 (1.001-1.035) Urine Protein Negative (Neg - Trace) Urine Glucose (UA) Negative (Negative) Assessment and Plan Assessment and plan (1) Pericarditis: Status: Acute (2) Pericardial effusion: Status: Acute (3) Hypertension: Status: Acute (4) Hyperlipidemia: Status: Acute Additional Assessment & Plan Additional Plan: Agree with current treatment plan Echocardiographic exam does not show any cardiac tamponade features Patient's pericardial effusion is mostly posterior behind the LV No pericardial effusion noted anterior to the RV where at the site of pericardiocentesis could be done At this time patient appears hemodynamically stable Blood pressure is 110/60 pulse is 72 Troponin within normal Continue current treatment
[2024-12-16 07:54] LABS: Sed Rate (ESR) 106 mm/hr (0-20)
--- NOTE | 2024-12-16 08:02 | EKG_ITS ---
[facility] Test Date: 2024-12-16 Pat Name: IVY MACIEL Department: Room: S260A Gender: Male Char Puller: JOSH : 1950 Requested By: Gus Bravo Order Number: [id number] Reading MD: Gus Bravo Measurements Intervals Anderson Rate: 82 P: 32 LA: 152 QRS: 35 QRSD: 98 T: 30 QT: 314 QTc: 368 Interpretive Statements SINUS RHYTHM ST ELEVATION CONSISTENT WITH INJURY, PERICARDITIS, OR EARLY REPOLARIZATION NONSPECIFIC ST & T-WAVE ABNORMALITY Compared to ECG 12/15/2024 13:17:35 Early repolarization now present T-wave abnormality now present Myocardial infarct finding no longer present ST (T wave) deviation still present /store/S0/[id number].pdf
[2024-12-16] MEDS: PANTOPRAZOLE 40 MG TABLET PO (08:55)
[2024-12-16] MEDS: INDOMETHACIN 25 MG CAPSULE PO ×2 (08:56→20:10)
[2024-12-16] MEDS: COLCHICINE 0.6 MG TABLET PO (08:56)
[2024-12-16 09:11] LABS: LDH (Lactate Dehydrogenase) 183 U/L (120-246)
[2024-12-16 10:25] LABS: AFP Non-Pregnant 1.40 ng/mL (<8.10); Carcinoembryonic Antigen 1.3 ng/mL (0.0-5.0)
--- NOTE | 2024-12-16 10:31 | ESPR_ITS ---
Documentation for date of: 12/16/24 Subjective Subjective Interval history: Mr. Kassie Johnson is a 73-year-old male with a past medical history of hypertension, hyperlipidemia, and hypothyroidism who presented with several days of chest tightness, shortness of breath, and abdominal discomfort. The chest pain was described as diffuse tightness, worse with deep inspiration, but not positional. He initially experienced partial relief with ibuprofen, but the pain returned despite continued use. He also reported low-grade fevers and fatigue over the past week, along with noticeable unintentional weight loss over the last few months. In the ED, EKG showed diffuse ST-segment elevations consistent with pericarditis, troponins were negative, and echocardiogram revealed a moderate posterior pericardial effusion without signs of tamponade. Labs showed leukocytosis, elevated ESR (119) and CRP (>10), mild hyponatremia, and acute kidney injury (Cr 1.6, baseline 1.1). The patient received IV fluids with improvement in renal function. He was started on colchicine, and indomethacin was added once kidney function improved. 12/16/2024: Patient seen and examined at bedside. He appears well and comfortable. Denies chest pain or dyspnea today. Appetite is fair. No nausea, vomiting, or abdominal pain. Today, the patient reports improvement in chest discomfort and shortness of breath, denies new pain, and appears clinically stable. Tumor markers (PSA, CEA, AFP, LDH) have been ordered to evaluate for unexplained weight loss. Labs: WBC 7.2, Hgb 11.7, Hct 35, Plt 271, Na 136, K 3.7, Cl 103, CO2 22, BUN 23, Cr 1.1 (improved from 1.6 yesterday), Ca 9.1, Mg 2.2, BP 104/60, HR 72. Exam Vital Signs Temp Pulse Resp BP Pulse Ox O2 Del Method 97.7 F 83 24 H 106/70 97 Room Air 12/16/24 08:00 12/16/24 08:00 12/16/24 08:00 12/16/24 08:00 12/16/24 08:00 12/16/24 08:00 Narrative Exam General: AOx3, no acute distress. CV: Regular rate and rhythm, no murmurs, rubs, or gallops. Pulm: Clear to auscultation bilaterally, no wheezing or rales. Abdomen: Soft, non-tender, non-distended, bowel sounds present. Extremities: No edema. Neuro: Alert, oriented, no focal deficits. Skin: Warm, dry, intact. Objective Labs 12/17/24 04:30 12/17/24 04:30 Labs: Laboratory Results - last 24 hr 12/15/24 12/15/24 12/15/24 12:05 12:17 15:41 WBC 10.0 RBC 4.56 Hgb 12.9 L Hct 37.8 L MCV 83 MCH 28.3 MCHC 34.1 RDW Std Deviation 46.3 H Plt Count 227 Neut % (Auto) 71 Lymph % (Auto) 15 [place] % (Auto) 10 Eos % (Auto) 3 Baso % (Auto) 0 Neut # (Auto) 7.2 Lymph # (Auto) 1.5 [place] # (Auto) 1.0 H Eos # (Auto) 0.3 Baso # (Auto) 0.0 Immature Gran # (Auto) 0.04 H Absolute Nucleated RBC 0.00 Immature Gran % 0 Nucleated RBC % 0 ESR 119 H PT INR APTT Sodium 131 L Potassium 3.5 Chloride 98 Carbon Dioxide 20.7 Anion Gap 12 BUN 32 H Creatinine 1.6 H Estim Creat Clear Calc 31.7 L eGFR 45 L BUN/Creatinine Ratio 20 Glucose 109 H Calculated Osmolality 270 L Lactic Acid 2.1 H 1.1 Calcium 9.5 Corrected Calcium 9.5 Magnesium Total Bilirubin 0.8 AST 24 ALT 18 Alkaline Phosphatase 41 L Lactate Dehydrogenase Troponin I < 0.020 C-Reactive Prot, Quant > 10.0 H B-Natriuretic Peptide 142 H Total Protein 7.5 Albumin 4.5 Globulin 3.0 Albumin/Globulin Ratio 1.5 Lipase 61 H Tumor Marker AFP Carcinoembryonic Ag TSH 0.71 Ur Collection Type Urine Color Urine Clarity Urine pH Ur Specific [place] Urine Protein Urine Glucose (UA) Urine Ketones Urine Blood Urine Nitrite Urine Bilirubin Urine Urobilinogen (Auto) Ur Leukocyte Esterase Urine RBC Urine WBC Ur Squamous Epith Cells Urine Bacteria Ur Random Sodium Ur Random Potassium Ur Random Chloride Influenza A (Rapid) Negative Influenza B (Rapid) Negative 12/15/24 12/15/24 12/16/24 17:10 18:10 05:59 WBC 7.2 RBC 4.18 L Hgb 11.7 L Hct 35.0 L MCV 84 MCH 28.0 MCHC 33.4 RDW Std Deviation 46.5 H Plt Count 271 D Neut % (Auto) 61 Lymph % (Auto) 25 [place] % (Auto) 10 Eos % (Auto) 4 Baso % (Auto) 0 Neut # (Auto) 4.4 Lymph # (Auto) 1.8 [place] # (Auto) 0.7 Eos # (Auto) 0.3 Baso # (Auto) 0.0 Immature Gran # (Auto) 0.02 H Absolute Nucleated RBC 0.00 Immature Gran % 0 Nucleated RBC % 0 ESR 106 H PT 11.7 INR 1.1 APTT 35.2 Sodium 136 Potassium 3.7 Chloride 103 Carbon Dioxide 21.9 Anion Gap 11 BUN 23 Creatinine 1.1 D Estim Creat Clear Calc 46.2 L eGFR > 60 BUN/Creatinine Ratio 21 H Glucose 120 H Calculated Osmolality 276 Lactic Acid 1.0 Calcium 9.1 Corrected Calcium 9.1 Magnesium 2.2 Total Bilirubin 0.4 AST 30 ALT 18 Alkaline Phosphatase 43 L Lactate Dehydrogenase 183 Troponin I < 0.020 C-Reactive Prot, Quant 21.5 H B-Natriuretic Peptide Total Protein 6.6 Albumin 4.0 D Globulin 2.6 Albumin/Globulin Ratio 1.5 Lipase Tumor Marker AFP 1.40 Carcinoembryonic Ag 1.3 TSH Ur Collection Type Voided Urine Color Lt-Yellow Urine Clarity Clear Urine pH 6.0 Ur Specific [place] 1.012 Urine Protein Negative Urine Glucose (UA) Negative Urine Ketones Negative Urine Blood Negative Urine Nitrite Negative Urine Bilirubin Negative Urine Urobilinogen (Auto) Negative Ur Leukocyte Esterase Negative Urine RBC 1 Urine WBC < 1 Ur Squamous Epith Cells < 1 Urine Bacteria None Ur Random Sodium < 15.0 L Ur Random Potassium 11 L Ur Random Chloride < 20.0 L Influenza A (Rapid) Influenza B (Rapid) Quality Measures Quality Measures VTE prophylaxis Advance care planning discussed with:: patient Assessment & Plan Assessment Current Active Medications: Generic Name Dose Route Start Last Admin Trade Name Freq PRN Reason Stop Dose Admin Acetaminophen 650 mg 12/15/24 13:59 Acetaminophen 325 Mg Tablet PO 01/14/25 13:58 Q6H PRN Fever >100.4 or pain Colchicine 0.6 mg 12/15/24 15:15 12/16/24 08:56 Colchicine 0.6 Mg Tablet PO 01/14/25 15:14 0.6 mg QDAY ERICA Administration Heparin Sodium (Porcine) 5,000 unit 12/15/24 14:10 12/15/24 21:32 Heparin Sod Inj 5000 Unit/Ml Vial SC 12/29/24 14:09 5,000 unit On Hold: 12/16/24 05:33 Q8HR ERICA Administration Indomethacin 25 mg 12/16/24 09:00 12/16/24 08:56 Indomethacin 25 Mg Capsule PO 01/15/25 08:59 25 mg BID ERICA Administration Levothyroxine Sodium 112 mcg 12/16/24 06:00 12/16/24 05:32 Levothyroxine Sodium 112 Mcg Tablet PO 01/15/25 05:59 112 mcg ACBR ERICA Administration Ondansetron HCl 4 mg 12/15/24 13:59 Ondansetron Inj 2 Mg/Ml Inj 2 Ml IVP 01/14/25 13:58 Q6H PRN NAUSEA OR VOMITING Protocol Pantoprazole Sodium 40 mg 12/16/24 09:00 12/16/24 08:55 Pantoprazole 40 Mg Tablet PO 01/15/25 08:59 40 mg QDAY ERICA Administration Sennosides 1 tab 12/15/24 13:59 Senna Tablet PO 01/14/25 13:58 QDAY PRN constipation Protocol Plan 73-year-old male with history of HTN, HLD, and hypothyroidism admitted for acute viral pericarditis with moderate posterior pericardial effusion, currently hemodynamically stable and improving renal function, started on indomethacin and colchicine, with ongoing evaluation for unintentional weight loss (tumor markers pending). # Acute Pericarditis Likely viral etiology; presented with diffuse ST elevations, pericardial effusion on CT, and elevated inflammatory markers (ESR/CRP). Troponins negative. Cardiology following. Plan: * Continue colchicine 0.6 mg daily. * Started indomethacin today (per cardiology discussion). * Continue pantoprazole 40 mg daily for GI protection. * Monitor symptoms and EKG daily. * Repeat EKG ordered for comparison. # Pericardial Effusion Moderate effusion on CT, posterior to LV; no tamponade on echocardiogram. Hemodynamically stable. Plan: * Continue conservative management. * Monitor for hemodynamic instability or worsening effusion. # Acute Kidney Injury, improving Admission Cr 1.6 -> now 1.1. Likely prerenal from decreased PO intake. Plan: * Encourage oral hydration. * Avoid nephrotoxic agents. * Continue to monitor renal panel. # Weight Loss, unexplained Significant unintentional weight loss noted. Concern for possible occult malignancy given family history. Abdominal pelvis CT negative Plan: * Ordered tumor markers: PSA, CEA, AFP, LDH. * Continue clinical monitoring and reassess after results. # Hyponatremia, resolved Admission Na 131 -> 136 today. Likely due to dehydration. Plan: * Continue regular diet with adequate hydration. * Monitor BMP daily. # Hypothyroidism Stable. Plan: * Continue levothyroxine 112 mcg daily. # Hypertension Currently well-controlled. Plan: * Continue holding losartan while monitoring renal function and BP trends. * Resume if stable. # Hyperlipidemia Stable. Plan: * Continue to hold fenofibrate until renal function remains stable. Health Maintenance: Diet: Cardiac diet DVT Prophylaxis: Heparin SQ GI Prophylaxis: Pantoprazole 40 mg PO daily Code Status: Full Disposition: Continue inpatient monitoring, cardiology following ----- Plan discussed with attending physician Dr. Rahul Bravo MD PGY-1 Internal Medicine Attending Provider Attestation/Addendum Patient seen and examined with resident physician Dr. Bravo. Note reviewed, agree with findings and recommendations. Patient continues to have pain on respirations. EKG showed ST elevation in all leads consistent with mild acute pericarditis. Hemodynamically stable. Spoke to Dr. Sifuentes-continue with indomethacin, colchicine. If stable will plan for discharge tomorrow. Suspected viral pericarditis. Patient also noted to have weight loss-CT chest abdomen and pelvis no acute pathology. Tumor markers ordered. y
[2024-12-16] MEDS: ACETAMINOPHEN 325 MG TABLET 650 MG PO (20:10)
[2024-12-17] VITALS (7 sets, daily range): BP systolic 100–137; BP diastolic 61–79; PULSE 57–89; RESP 14–99; TEMP 36.1–36.4; O2SAT 95–98; BMI 19.4; BMI 19.3
[2024-12-17 05:28] LABS: Basophils # (Auto) 0.1 Thou/mm3 (0.0-0.2); Basophils % (Auto) 1 % (0-2.5); Eosinophils # (Auto) 0.4 Thou/mm3 (0.0-0.5); Eosinophils % (Auto) 7 % (0-10); Hematocrit 32.8 % (41.0-53.0); Hemoglobin 11.2 g/dL (13.5-16.0); Immature Granulocytes Auto 0.02 Thou/mm3 (0.00-0.00); Lymphocytes # (Auto) 2.4 Thou/mm3 (1.0-4.8); Lymphocytes % (Auto) 35 % (10-50); Mean Corpuscular HGB Conc 34.1 g/dl (31.0-37.0); Mean Corpuscular Hemoglobin 28.6 pg (25.0-35.0); Mean Corpuscular Volume 84 fL (80-100); Monocytes # (Auto) 0.8 Thou/mm3 (0.0-0.8); Monocytes % (Auto) 11 % (0-12); Neutrophils # (Auto) 3.2 Thou/mm3 (1.8-7.7); Neutrophils % (Auto) 46 % (37-80); Nucleated Red Blood Cell # 0.00 Thou/mm3 (0.00-0.00); Nucleated Red Blood Cell % 0 /100 WBC (0); Platelet Count 253 Thou/mm3 (140-440); RDW Standard Deviation 46.3 fL (35.1-43.9); Red Blood Count 3.91 Miln/mm3 (4.50-5.90); White Blood Count 6.8 Thou/mm3 (3.8-10.6)
[2024-12-17] MEDS: LEVOTHYROXINE SODIUM 112 MCG TABLET PO (05:32)
[2024-12-17 05:59] LABS: Alanine Aminotransferase 18 U/L (10-49); Albumin, Serum 3.8 gm/dL (3.4-4.8); Albumin/Globulin Ratio 1.5 (1.2-2.2); Alkaline Phosphatase 37 U/L (46-116); Anion Gap 10 (7-16); Aspartate Amino Transferase 30 U/L (0-34); BUN/Creatinine Ratio 19 Ratio (12-20); Bilirubin,Total 0.5 mg/dL (0.3-1.2); Blood Urea Nitrogen 21 mg/dL (9-23); C-Reactive Protein > 10.0 mg/dL (0.0-0.9); Calcium 9.0 mg/dL (8.3-10.6); Calcium (Corrected) 9.2 mg/dL (8.5-10.1); Carbon Dioxide 25.2 mMol/L (20.0-31.0); Chloride 105 mMol/L (98-107); Creatinine (Component) 1.1 mg/dL (0.6-1.3); Estimated Creatinine Clearance 46.2 mL/min (>60); Globulin 2.5 gm/dL (2.3-3.5); Glucose 109 mg/dL (74-106); Magnesium 2.2 mg/dL (1.6-2.6); Osmolality,Calculated 283 (275-295); Potassium 4.1 mMol/L (3.4-5.1); Sodium 140 mMol/L (136-145); Total Protein 6.3 gm/dL (5.7-8.2); eGFR > 60 See Note
[2024-12-17 06:14] LABS: Sed Rate (ESR) 95 mm/hr (0-20)
[2024-12-17] MEDS: INDOMETHACIN 25 MG CAPSULE PO ×2 (08:00→20:51)
[2024-12-17] MEDS: PANTOPRAZOLE 40 MG TABLET PO (08:01)
[2024-12-17] MEDS: COLCHICINE 0.6 MG TABLET PO (08:01)
--- NOTE | 2024-12-17 10:07 | ESPR_ITS ---
Documentation for date of: 12/17/24 Subjective Subjective Interval history: Mr. Kassie Johnson is a 73-year-old male with a past medical history of hypertension, hyperlipidemia, and hypothyroidism who presented with several days of chest tightness, shortness of breath, and abdominal discomfort. The chest pain was described as diffuse tightness, worse with deep inspiration, but not positional. He initially experienced partial relief with ibuprofen, but the pain returned despite continued use. He also reported low-grade fevers and fatigue over the past week, along with noticeable unintentional weight loss over the last few months. In the ED, EKG showed diffuse ST-segment elevations consistent with pericarditis, troponins were negative, and echocardiogram revealed a moderate posterior pericardial effusion without signs of tamponade. Labs showed leukocytosis, elevated ESR (119) and CRP (>10), mild hyponatremia, and acute kidney injury (Cr 1.6, baseline 1.1). The patient received IV fluids with improvement in renal function. He was started on colchicine, and indomethacin was added once kidney function improved. 12/16/2024: Patient seen and examined at bedside. He appears well and comfortable. Denies chest pain or dyspnea today. Appetite is fair. No nausea, vomiting, or abdominal pain. Today, the patient reports improvement in chest discomfort and shortness of breath, denies new pain, and appears clinically stable. Tumor markers (PSA, CEA, AFP, LDH) have been ordered to evaluate for unexplained weight loss. Labs: WBC 7.2, Hgb 11.7, Hct 35, Plt 271, Na 136, K 3.7, Cl 103, CO2 22, BUN 23, Cr 1.1 (improved from 1.6 yesterday), Ca 9.1, Mg 2.2, BP 104/60, HR 72. 12/17/2024: Patient seen and examined at bedside today. Reports continued improvement. Chest pain is better, particularly when breathing in. No shortness of breath, dizziness, or abdominal discomfort. Appetite fair. Tolerating current medications without issue. Possible discharge planned for tomorrow pending continued stability. Labs: WBC 6.8, Hgb 11.2, Hct 32.8, Na 148, K 4.1, Cl 105, CO2 25, Cr 1.1, Ca 9.2, CRP and ESR: remain elevated. EKG: persistent ST elevations consistent with pericarditis. Exam Vital Signs Temp Pulse Resp BP Pulse Ox O2 Del Method 97.4 F 75 23 H 120/69 95 Room Air 12/17/24 08:00 12/17/24 08:00 12/17/24 08:00 12/17/24 08:00 12/17/24 08:00 12/17/24 08:00 Narrative Exam General: AOx3, no acute distress. CV: Regular rate and rhythm, no murmurs, rubs, or gallops. Pulm: Clear to auscultation bilaterally, no wheezing or rales. Abdomen: Soft, non-tender, non-distended, bowel sounds present. Extremities: No edema. Neuro: Alert, oriented, no focal deficits. Skin: Warm, dry, intact. Objective Labs 12/17/24 04:30 12/17/24 04:30 Labs: Laboratory Results - last 24 hr 12/16/24 12/17/24 05:59 04:30 WBC 6.8 RBC 3.91 L Hgb 11.2 L Hct 32.8 L MCV 84 MCH 28.6 MCHC 34.1 RDW Std Deviation 46.3 H Plt Count 253 Neut % (Auto) 46 Lymph % (Auto) 35 Rosebud % (Auto) 11 Eos % (Auto) 7 Baso % (Auto) 1 Neut # (Auto) 3.2 Lymph # (Auto) 2.4 Rosebud # (Auto) 0.8 Eos # (Auto) 0.4 Baso # (Auto) 0.1 Immature Gran # (Auto) 0.02 H Absolute Nucleated RBC 0.00 Immature Gran % 0 Nucleated RBC % 0 ESR 95 H Sodium 140 Potassium 4.1 Chloride 105 Carbon Dioxide 25.2 Anion Gap 10 BUN 21 Creatinine 1.1 Estim Creat Clear Calc 46.2 L eGFR > 60 BUN/Creatinine Ratio 19 Glucose 109 H Calculated Osmolality 283 Calcium 9.0 Corrected Calcium 9.2 Magnesium 2.2 Total Bilirubin 0.5 AST 30 ALT 18 Alkaline Phosphatase 37 L C-Reactive Prot, Quant > 10.0 H Total Protein 6.3 Albumin 3.8 Globulin 2.5 Albumin/Globulin Ratio 1.5 Tumor Marker AFP 1.40 Carcinoembryonic Ag 1.3 Quality Measures Quality Measures VTE prophylaxis Advance care planning discussed with:: patient Assessment & Plan Assessment Current Active Medications: Generic Name Dose Route Start Last Admin Trade Name Freq PRN Reason Stop Dose Admin Acetaminophen 650 mg 12/15/24 13:59 12/16/24 20:10 Acetaminophen 325 Mg Tablet PO 01/14/25 13:58 650 mg Q6H PRN Administration Fever >100.4 or pain Colchicine 0.6 mg 12/15/24 15:15 12/17/24 08:01 Colchicine 0.6 Mg Tablet PO 01/14/25 15:14 0.6 mg QDAY ERICA Administration Heparin Sodium (Porcine) 5,000 unit 12/15/24 14:10 12/15/24 21:32 Heparin Sod Inj 5000 Unit/Ml Vial SC 12/29/24 14:09 5,000 unit On Hold: 12/16/24 05:33 Q8HR ERICA Administration Indomethacin 25 mg 12/16/24 09:00 12/17/24 08:00 Indomethacin 25 Mg Capsule PO 01/15/25 08:59 25 mg BID ERICA Administration Levothyroxine Sodium 112 mcg 12/16/24 06:00 12/17/24 05:32 Levothyroxine Sodium 112 Mcg Tablet PO 01/15/25 05:59 112 mcg ACBR ERICA Administration Ondansetron HCl 4 mg 12/15/24 13:59 Ondansetron Inj 2 Mg/Ml Inj 2 Ml IVP 01/14/25 13:58 Q6H PRN NAUSEA OR VOMITING Protocol Pantoprazole Sodium 40 mg 12/16/24 09:00 12/17/24 08:01 Pantoprazole 40 Mg Tablet PO 01/15/25 08:59 40 mg QDAY ERICA Administration Sennosides 1 tab 12/15/24 13:59 Senna Tablet PO 01/14/25 13:58 QDAY PRN constipation Protocol Plan 73-year-old male with HTN, HLD, and hypothyroidism admitted for acute viral pericarditis with moderate posterior pericardial effusion, currently improving symptomatically and hemodynamically stable;ongoing evaluation for unintentional weight loss (tumor markers pending), plan for continued management and possible discharge tomorrow. # Acute Pericarditis Likely viral etiology; presented with diffuse ST elevations, pericardial effusion on CT, and elevated inflammatory markers (ESR/CRP). Troponins negative. ST elevations persist on EKG Cardiology following. Plan: * Continue colchicine 0.6 mg daily. * Continue indomethacin as tolerated. * Continue pantoprazole 40 mg daily for GI protection. * Monitor symptoms and EKG daily. * Repeat EKG ordered for comparison. # Pericardial Effusion Moderate effusion on CT, posterior to LV; no tamponade on echocardiogram. Hemodynamically stable. Plan: * Continue conservative management. * Monitor for hemodynamic instability or worsening effusion. # Acute Kidney Injury, improving Admission Cr 1.6 -> now 1.1. Likely prerenal from decreased PO intake. Plan: * Encourage oral hydration. * Avoid nephrotoxic agents. * Continue to monitor renal panel. # Weight Loss, unexplained Significant unintentional weight loss noted. Concern for possible occult malignancy given family history. Abdominal pelvis CT negative Plan: * Ordered tumor markers: PSA, CEA, AFP, LDH. * Continue clinical monitoring and reassess after results. # Hyponatremia, resolved Admission Na 131 -> 140 today. Likely due to dehydration. Plan: * Continue regular diet with adequate hydration. * Monitor BMP daily. # Hypothyroidism Stable. Plan: * Continue levothyroxine 112 mcg daily. # Hypertension Currently well-controlled. Plan: * Continue holding losartan while monitoring renal function and BP trends. * Resume if stable. # Hyperlipidemia Stable. Plan: * Continue to hold fenofibrate until renal function remains stable. Health Maintenance: Diet: Cardiac diet DVT Prophylaxis: Heparin SQ GI Prophylaxis: Pantoprazole 40 mg PO daily Code Status: Full Disposition: Continue current management, anticipate discharge tomorrow if stable ----- Plan discussed with attending physician Dr. Rahul Bravo MD PGY-1 Internal Medicine Attending Provider Attestation/Addendum Patient seen and examined with resident physician Dr. Bravo. Note reviewed, agree with findings and recommendations. Patient with pericarditis with no hemodynamic compromise. Continue with indomethacin, colchicine. Chest pain seems to be tad better. Possible discharge tomorrow. EKG still shows a diffuse ST elevation.
[2024-12-18] VITALS: BP 110/70; PULSE 60; PULSE 64; RESP 17; TEMP 36.1; O2SAT 97
[2024-12-18 01:57] VITALS: PULSE 83; RESP 18; RESP 98
[2024-12-18 04:00] VITALS: BP 109/72; PULSE 62; PULSE 67; RESP 20; TEMP 36.1; O2SAT 97
[2024-12-18] MEDS: LEVOTHYROXINE SODIUM 112 MCG TABLET PO (05:30)
[2024-12-18 05:57] LABS: Basophils # (Auto) 0.1 Thou/mm3 (0.0-0.2); Basophils % (Auto) 1 % (0-2.5); Eosinophils # (Auto) 0.8 Thou/mm3 (0.0-0.5); Eosinophils % (Auto) 10 % (0-10); Hematocrit 32.9 % (41.0-53.0); Hemoglobin 11.1 g/dL (13.5-16.0); Immature Granulocytes Auto 0.02 Thou/mm3 (0.00-0.00); Lymphocytes # (Auto) 2.1 Thou/mm3 (1.0-4.8); Lymphocytes % (Auto) 28 % (10-50); Mean Corpuscular HGB Conc 33.7 g/dl (31.0-37.0); Mean Corpuscular Hemoglobin 28.2 pg (25.0-35.0); Mean Corpuscular Volume 84 fL (80-100); Monocytes # (Auto) 0.8 Thou/mm3 (0.0-0.8); Monocytes % (Auto) 11 % (0-12); Neutrophils # (Auto) 3.7 Thou/mm3 (1.8-7.7); Neutrophils % (Auto) 50 % (37-80); Nucleated Red Blood Cell # 0.00 Thou/mm3 (0.00-0.00); Nucleated Red Blood Cell % 0 /100 WBC (0); Platelet Count 354 Thou/mm3 (140-440); RDW Standard Deviation 46.0 fL (35.1-43.9); Red Blood Count 3.93 Miln/mm3 (4.50-5.90); White Blood Count 7.4 Thou/mm3 (3.8-10.6)
[2024-12-18 06:00] VITALS: BMI 19.8
[2024-12-18 06:23] LABS: Alanine Aminotransferase 16 U/L (10-49); Albumin, Serum 3.7 gm/dL (3.4-4.8); Albumin/Globulin Ratio 1.5 (1.2-2.2); Alkaline Phosphatase 40 U/L (46-116); Anion Gap 10 (7-16); Aspartate Amino Transferase 26 U/L (0-34); BUN/Creatinine Ratio 19 Ratio (12-20); Bilirubin,Total 0.4 mg/dL (0.3-1.2); Blood Urea Nitrogen 19 mg/dL (9-23); C-Reactive Protein 6.3 mg/dL (0.0-0.9); Calcium 9.1 mg/dL (8.3-10.6); Calcium (Corrected) 9.3 mg/dL (8.5-10.1); Carbon Dioxide 25.5 mMol/L (20.0-31.0); Chloride 106 mMol/L (98-107); Creatinine (Component) 1.0 mg/dL (0.6-1.3); Estimated Creatinine Clearance 52.0 mL/min (>60); Globulin 2.5 gm/dL (2.3-3.5); Glucose 110 mg/dL (74-106); Magnesium 2.1 mg/dL (1.6-2.6); Osmolality,Calculated 284 (275-295); Potassium 4.2 mMol/L (3.4-5.1); Sodium 141 mMol/L (136-145); Total Protein 6.2 gm/dL (5.7-8.2); eGFR > 60 See Note
[2024-12-18 06:30] LABS: Sed Rate (ESR) 78 mm/hr (0-20)
[2024-12-18 08:00] VITALS: BP 124/72; PULSE 57; PULSE 77; RESP 19; TEMP 36.2; O2SAT 98
[2024-12-18] MEDS: INDOMETHACIN 25 MG CAPSULE PO (08:06)
[2024-12-18] MEDS: COLCHICINE 0.6 MG TABLET PO (08:07)
[2024-12-18] MEDS: PANTOPRAZOLE 40 MG TABLET PO (08:07)
--- NOTE | 2024-12-18 09:19 | PD.RESDS ---
Planned Discharge Date 12/18/24 DS: Providers Provider Date of admission: 12/15/24 13:59 Primary care physician: Enrico Kay MD Admitting Provider: Gabe Venegas MD Attending Provider on Admission: Lázaro Nixon DO Consults: 12/15/24 11:51 Consult to Cardiology Stat Comment: CP/Pericarditis? Consulting Provider: Mary Sifuentes Attending Provider on DC: Gus Bravo MD Discharging Provider: Gus Bravo MD DS: Diagnosis Problem List Completed Was Problem List Reviewed/Reconciled?: Yes Hospital Course Hospital Course Hospital course: 73-year-old male with a history of hypertension, hyperlipidemia, and hypothyroidism, was admitted on 12/15/2024 for evaluation of chest tightness and shortness of breath. EKG showed diffuse ST-segment elevations consistent with acute pericarditis. Echocardiogram revealed a moderate posterior pericardial effusion without signs of tamponade. Troponins were negative, and inflammatory markers (ESR/CRP) were markedly elevated. He was initially treated with colchicine and later started on indomethacin once renal function improved. His kidney function stabilized (Cr improved from 1.6 -> 1). Chest pain and breathing have gradually improved. Repeat EKG showed persistent ST elevation consistent with resolving pericarditis. No hemodynamic instability or recurrent pain was noted during hospitalization. Workup for unintentional weight loss is ongoing (tumor markers ordered). He remained stable throughout the admission and is now cleared for discharge on medical therapy with outpatient follow-up. Diagnosis during admission: #Acute viral pericarditis #Pericardial effusion, posterior, moderate #Acute kidney injury, resolved #Hypertension #Hyperlipidemia #Hypothyroidism #Unintentional weight loss Discharge instructions: -Take medications as prescribed. -Colchicine 0.6 mg PO once daily for 1 month -Indomethacin 25 mg PO BID with food for 1 month -Continue cardiac diet and adequate hydration. -Follow up with primary care provider in 1 week for medication review, renal function, and repeat labs (BMP, CRP, ESR). -Outpatient review of tumor marker results and further workup for weight loss. -Monitor for recurrence of chest pain, dyspnea, or palpitations?return to ED immediately if symptoms worsen. ----- Plan discussed with attending physician Dr. Rahul Bravo MD PGY-1 Internal Medicine Status at Discharge Cognitive/behavioral status at discharge: Stable Functional status at discharge: independent ambulation Overall status at discharge: patient is back to baseline Time Spent with Patient Time attestation: Total time spent providing and/or coordinating discharge services: Time spent: Greater than 30 minutes Exam Vital Signs Temp Pulse Resp BP Pulse Ox O2 Del Method 97.2 F 57 L 19 124/72 98 Room Air 12/18/24 08:00 12/18/24 08:00 12/18/24 08:00 12/18/24 08:00 12/18/24 08:00 12/18/24 08:00 Narrative Exam General: Alert, oriented ?3, no acute distress Heart: Regular rate and rhythm, no murmurs, rubs, or gallops Lungs: Clear to auscultation bilaterally Abdomen: Soft, non-tender, non-distended Extremities: No edema Neuro: Grossly intact Skin: Warm, dry, intact Discharge Plan Plan Patient Disposition: HOME (Self Care) Care Plan Goals: -Take medications as prescribed. -Colchicine 0.6 mg PO once daily for 1 month -Indomethacin 25 mg PO BID with food for 1 month -Continue cardiac diet and adequate hydration. -Follow up with primary care provider in 1 week for medication review, renal function, and repeat labs (BMP, CRP, ESR). -Outpatient review of tumor marker results and further workup for weight loss. -Monitor for recurrence of chest pain, dyspnea, or palpitations?return to ED immediately if symptoms worsen. Prescriptions/Referrals Prescriptions/Med Rec: New indomethacin 25 mg Capsule 25 mg PO BID 30 Days Qty: 60 0RF colchicine 0.6 mg Tablet 0.6 mg PO QDAY 30 Days Qty: 30 0RF No Action losartan 25 mg tablet 25 mg PO QDAY Patient Comments: TAKE 1 TABLET BY MOUTH ONCE A DAY fenofibrate 160 mg tablet 160 mg PO QDAY Patient Comments: TAKE 1 TABLET BY MOUTH DAILY dorzolamide-timolol 22.3-6.8 mg/mL drops 1 drp OPHTHALMIC (EYE) Q12H Patient Comments: INSTILL 1 DROP IN BOTH EYES TWICE DAILY levothyroxine 112 mcg tablet 112 mcg PO QDAY Patient Comments: TAKE 1 TABLET BY MOUTH DAILY latanoprost 0.005 % drops 1 drp OPHTHALMIC (EYE) QPM Patient Comments: INSTILL 1 DROP INTO BOTH EYES EVERY NIGHT AT BEDTIME Referrals: Enrico Kay MD [Primary Care Provider, Nephrology] Patient/Caregiver Discharge Instructions Education Materials: Exercise for a Healthier Heart, Eating Heart-Healthy Foods Print Language: Ukrainian Stand Alone Forms: Brianne Award Info., Patient Portal Info Letter Discharge Order Discharge Orders: Discharge (Routine); Ordered 12/18/24 Ordered By: Gus Bravo Quality Discharge Quality Measures VTE prophylaxis MD Attestestation MD Attestation Patient seen and examined with resident physician Dr. Bravo. Note reviewed, agree with findings and recommendations. Patient admitted with pericarditis. Discharged on colchicine, indomethacin. Follow-up with me in 1 week
--- NOTE | 2024-12-18 14:16 | PC.SS ---
rounding note: Patient has d/c orders for today. Patient to d/c home. No d/c needs.
[2024-12-18 22:07] LABS: PSA, Free 0.48 ng/mL; PSA, Total 1.7 ng/mL (< OR = 4.0)
== END 2024-12-18 10:09 | disposition home or self-care (01) | DRG 314 ==
LOC: SERX 12:22 → SERHOLD 14:44 → S2NX 20:48
PROVIDERS: Student in an Organized Health Care Education/Training Program; Admitting Provider Internal Medicine; PCP Internal Medicine; Referring Provider Family Medicine; Visit Provider Student in an Organized Health Care Education/Training Program
DX: I30.1 Infective pericarditis (principal); I26.99 Other pulmonary embolism without acute cor pulmonale; E87.1 Hypo-osmolality and hyponatremia; N17.9 Acute kidney failure, unspecified; E87.20 Acidosis, unspecified; I31.39 Other pericardial effusion (noninflammatory); I10 Essential (primary) hypertension; K21.9 Gastro-esophageal reflux disease without esophagitis; E78.5 Hyperlipidemia, unspecified; E03.9 Hypothyroidism, unspecified; R63.4 Abnormal weight loss; E86.0 Dehydration; Z79.890 Hormone replacement therapy; Z79.899 Other long term (current) drug therapy
CPT/HCPCS: 36415; 71045; 74176; 80053; 81001; 82105; 82378; 82436; 83605; 83615; 83690; 83735; 83880; 84133; 84153; 84154; 84300; 84443; 84484; 85025; 85610; 85652; 85730; 86140; 87502; 87811; 93005; 93306; 96361; 96372; 96374; 99285; J1644; J2270; J3490; J7030; A9270

== ENCOUNTER 2025-01-24 11:09 | Emergency (ER) | payer MEDICARE, BC, SELFPAY ==
--- NOTE | 2025-01-24 11:27 | XR_ITS ---
EXAMINATION: PA chest single view TECHNIQUE: Upright PA chest single view Date and time: January 24, 2025, 1202 hours INDICATIONS: Chest pain today. FINDINGS: Suspicious for early pneumonia left base Right lung clear Intact osseous structures Mild prominence left ventricle IMPRESSION: Suspicious for early pneumonia left base
--- NOTE | 2025-01-24 11:27 | EKG_ITS ---
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
--- NOTE | 2025-01-24 11:28 | EDRME_ITS ---
Rapid Medical Screening Exam RME Arrival date/time: 01/24/25 11:09 73-year-old male with a history of hypertension, hyperlipidemia, and hypothyroidism, presents to the emergency room with a chief complaint of left- sided sternal chest pain and shortness of breath that began today at 3 in the morning. Patient was recently admitted on 12/15/2024 for acute pericarditis. I have greeted and performed a focused initial assessment of this patient. A comprehensive ED assessment and evaluation of the patient, analysis of all test results, and completion of the medical decision making process will be conducted by additional ED providers. Chief Complaint: Chest Pain Time Seen by Provider: 01/24/25 11:10 Vital signs reviewed by provider: Yes Exam: Strong and regular rhythm. S1 and S2. Left-sided sternal chest pain that radiates down the left arm Clear bilateral lung sounds Clinical Impression: Acute pericarditis/STEMI/NSTEMI
[2025-01-24 11:31] VITALS: BP 144/80; PULSE 95; RESP 18; TEMP 36.7; O2SAT 96
[2025-01-24 12:06] LABS: Basophils # (Auto) 0.1 Thou/mm3 (0.0-0.2); Basophils % (Auto) 1 % (0-2.5); Eosinophils # (Auto) 0.2 Thou/mm3 (0.0-0.5); Eosinophils % (Auto) 2 % (0-10); Hematocrit 42.8 % (41.0-53.0); Hemoglobin 14.1 g/dL (13.5-16.0); Immature Granulocytes Auto 0.02 Thou/mm3 (0.00-0.00); Lymphocytes # (Auto) 2.0 Thou/mm3 (1.0-4.8); Lymphocytes % (Auto) 24 % (10-50); Mean Corpuscular HGB Conc 32.9 g/dl (31.0-37.0); Mean Corpuscular Hemoglobin 28.7 pg (25.0-35.0); Mean Corpuscular Volume 87 fL (80-100); Monocytes # (Auto) 0.8 Thou/mm3 (0.0-0.8); Monocytes % (Auto) 9 % (0-12); Neutrophils # (Auto) 5.2 Thou/mm3 (1.8-7.7); Neutrophils % (Auto) 64 % (37-80); Nucleated Red Blood Cell # 0.00 Thou/mm3 (0.00-0.00); Nucleated Red Blood Cell % 0 /100 WBC (0); Platelet Count 215 Thou/mm3 (140-440); RDW Standard Deviation 48.9 fL (35.1-43.9); Red Blood Count 4.91 Miln/mm3 (4.50-5.90); White Blood Count 8.1 Thou/mm3 (3.8-10.6)
[2025-01-24 12:21] LABS: INR 1.1 (0.9-1.3); Partial Thromboplastin Time 31.0 Seconds (22.0-36.0); Prothrombin Time 11.5 Seconds (9.0-12.2)
[2025-01-24 12:23] LABS: Collection Type, Urine Clean Catch; Squamous Epithelial Cell,Urine 0 /hpf (0-5)
[2025-01-24 12:24] LABS: B-Type Natriuretic Peptide 76 pg/mL (0-100)
[2025-01-24 12:30] LABS: Bacteria,Urine Rare; Bilirubin,Urine Negative (Negative); Blood,Urine Negative (Negative); Clarity,Urine Clear (Clear/Hazy); Color,Urine Yellow (Lt Yel-Yel); Culture Indicated,Urine Not Indicated; Glucose, Urine Negative (Negative); Hyaline Casts,Urine < 1 /hpf (0-1); Ketones,Urine Negative (Negative); Leukocyte Esterase,Urine Negative (Negative); Nitrite,Urine Negative (Negative); PH,Urine 6.5 (5.0-7.0); Protein,Urine Negative (Neg - Trace); RBC,Urine 2 /hpf (0-3); Specific Gravity,Urine 1.016 (1.001-1.035); Urobilinogen,Urine Negative mg/dL (0.0-1.0); WBC,Urine 1 /hpf (0-5)
[2025-01-24 12:32] LABS: Alanine Aminotransferase 44 U/L (10-49); Albumin, Serum 5.0 gm/dL (3.4-4.8); Albumin/Globulin Ratio 2.0 (1.2-2.2); Alkaline Phosphatase 67 U/L (46-116); Anion Gap 9 (7-16); Aspartate Amino Transferase 39 U/L (0-34); BUN/Creatinine Ratio 10 Ratio (12-20); Bilirubin,Total 1.3 mg/dL (0.3-1.2); Blood Urea Nitrogen 8 mg/dL (9-23); Calcium 9.9 mg/dL (8.3-10.6); Calcium (Corrected) 9.9 mg/dL (8.5-10.1); Carbon Dioxide 25.8 mMol/L (20.0-31.0); Chloride 104 mMol/L (98-107); Creatinine (Component) 0.8 mg/dL (0.6-1.3); Free T4 (Free Thyroxine) 1.74 ng/dL (0.89-1.76); Globulin 2.5 gm/dL (2.3-3.5); Glucose 120 mg/dL (74-106); Magnesium 1.9 mg/dL (1.6-2.6); Osmolality,Calculated 276 (275-295); Potassium 3.9 mMol/L (3.4-5.1); Sodium 139 mMol/L (136-145); Thyroid Stimulating Hormone 0.13 uIU/mL (0.55-4.78); Total Protein 7.5 gm/dL (5.7-8.2); Troponin I < 0.020 ng/mL (0.0-0.045); eGFR > 60 See Note
[2025-01-24 12:41] LABS: C-Reactive Protein 12.7 mg/dL (0.0-0.9)
--- NOTE | 2025-01-24 13:13 | PD.EDCHEST ---
ED Chest Pain RME/HPI General Chief Complaint: Chest Pain Stated Complaint: CHEST PAIN Time Seen by Provider: 01/24/25 11:10 Arrival date/time: 01/24/25 11:09 74-year-old male patient with significant history of hypothyroidism, came in for evaluation regarding left-sided chest pain with cough and not feeling well. Patient also complained of on and off epigastric pain, described as indigestion for several weeks. Been taking Protonix with no relief. Denies any shortness of breath denies any diaphoresis denies any fever denies any other complaints. RME / HPI RME / HPI narrative: 01/24/25 11:09 73-year-old male with a history of hypertension, hyperlipidemia, and hypothyroidism, presents to the emergency room with a chief complaint of left-sided sternal chest pain and shortness of breath that began today at 3 in the morning. Patient was recently admitted on 12/15/2024 for acute pericarditis. I have greeted and performed a focused initial assessment of this patient. A comprehensive ED assessment and evaluation of the patient, analysis of all test results, and completion of the medical decision making process will be conducted by additional ED providers. Exam: Strong and regular rhythm. S1 and S2. Left-sided sternal chest pain that radiates down the left arm Clear bilateral lung sounds Impression: Acute pericarditis/STEMI/NSTEMI Related Data Home Medications ?Medication ?Instructions ?Recorded ?Confirmed fenofibrate 160 mg tablet 160 mg PO QDAY 03/28/23 12/15/24 losartan 25 mg tablet 25 mg PO QDAY 03/28/23 12/15/24 dorzolamide 22.3 mg-timolol 6.8 1 drp ophthalmic (eye) Q12H 12/15/24 12/15/24 mg/mL eye drops latanoprost 0.005 % eye drops 1 drp ophthalmic (eye) QPM 12/15/24 12/15/24 levothyroxine 112 mcg tablet 112 mcg PO QDAY 12/15/24 12/15/24 Previous Rx's ?Medication ?Instructions ?Recorded aluminum-mag hydroxide-simethicone 10 ml PO TID PRN indigestion 01/24/25 400 mg-400 mg-40 mg/5 mL oral susp #3,000 mL (Maalox Maximum Strength) amoxicillin 875 mg-potassium 1 tab PO BID #14 tabs 01/24/25 clavulanate 125 mg tablet azithromycin 250 mg tablet See Rx Instructions PO .COMPLEX #6 01/24/25 (Zithromax Z-Sagar) tabs Allergies Allergy/AdvReac Type Severity Reaction Status Date / Time No Known Allergies Allergy Verified 01/24/25 11:12 Review of Systems Review of Systems Narrative Review of Systems: Review of system reviewed and within normal limits except mentioned in HPI ED Exam Narrative Physical exam: VITAL SIGNS: Reviewed. GENERAL APPEARANCE: Alert and interactive, follows commands, no acute distress, HEAD AND FACE: Non-traumatic. ENT: PERRL, pink conjunctivitis, eyelid no trauma, Mucous membrane moist. NECK: Supple, nontender, no nuchal rigidity. CHEST: No tenderness, no crepitus, no paradoxical movement, no retractions. LUNGS: Clear, well ventilated, symmetric, no rales, no wheezing, no ronchi, no stridor, good breath sounds bilaterally. HEART: Regular rate, regular rhythm, no murmur, no gallops. ABDOMEN: Soft, positive bowel sounds, nondistended, no guarding, nontender, no rebound, no masses, RECTAL: Deferred. GENITAL: Deferred. NEUROLOGICAL: Gross motor function intact sensory function intact, Appropriate for age. MUSCULOSKELETAL: low back nontender, full range of motion. EXTREMITIES: Nontender, full range of motion. SKIN: Color pink, dry, no rash, no lacerations, no abrasions, no contusions. LYMPHATICS: Deferred. Course Quality Measures none Orders Category Date Time Status EKG (ED ONLY) *Do not use* NOW Care 01/24/25 11:27 Completed EKG (ED Only) Stat Exams 01/24/25 11:27 Draft XR chest 1V portable Stat Exams 01/24/25 11:27 Completed B-Type Natriuretic Peptide Stat Lab 01/24/25 11:48 Completed CBC Stat Lab 01/24/25 11:48 Results CRP [C-Reactive Protein] Stat Lab 01/24/25 11:48 Completed Comprehensive Metabolic Panel Stat Lab 01/24/25 11:48 Completed ESR [Sed Rate (ESR)] Stat Lab 01/24/25 11:48 Results Free T4 (Free Thyroxine) Stat Lab 01/24/25 11:48 Completed Magnesium Stat Lab 01/24/25 11:48 Completed Partial Thromboplastin Time Stat Lab 01/24/25 11:48 Completed Prothrombin Time with INR Stat Lab 01/24/25 11:48 Completed TSH [Thyroid Stimulating Hormone] Stat Lab 01/24/25 11:48 Completed Troponin I Stat Lab 01/24/25 11:48 Completed Urinalysis, C/S if Indicated Stat Lab 01/24/25 12:11 Completed Vital Signs Vital signs: Vital Signs Temperature 98.0 F 01/24/25 11:31 Pulse Rate 95 01/24/25 11:31 Respiratory Rate 18 01/24/25 11:31 Blood Pressure 144/80 H 01/24/25 11:31 Pulse Oximetry (%) 96 01/24/25 11:31 Oxygen Delivery Method Room Air 01/24/25 11:31 Chest Pain MDM Narrative MDM Narrative:: 74-year-old male patient with significant history of hypothyroidism, came in for evaluation regarding left-sided chest pain with cough and not feeling well. Patient also complained of on and off epigastric pain, described as indigestion for several weeks. Been taking Protonix with no relief. Denies any shortness of breath denies any diaphoresis denies any fever denies any other complaints. Cardiac workup all came back unremarkable troponin is normal CBC unremarkable chest x-ray showed pneumonia early. EKG showed normal sinus rhythm, ventricular rate of 99 bpm, no ST segment elevation depression noted. Results discussed with the patient. Patient was noted to be satting 96% on room air. This patient home on Zithromax and Augmentin and Maalox stable discharge home Patient data External records reviewed:: None Clinical information provided by:: patient Social determinants that could affect healthcare access:: none Patient has the following chronic illnesses:: Hypothyroidism How is presenting disease/condition affected by chronic disease/condition?: uneffected by Evaluation data The following diagnostics were reviewed and interpreted by me:: lab results, radiology exam(s) and EKG tracing(s) Lab and/or radiology exams considered but not ordered:: None Interpretation Summary: See above Medications / Prescriptions Medications or Prescriptions considered but not ordered:: None Medication administrations:: None Consultations Consultation(s) initiated? (list below): No Diagnosis Chest Pain Differential Diagnosis: pneumothorax, atypical chest pain, costochondritis and chest pain Most likely diagnosis given after review of the tests above:: Pneumonia, indigestion Admission Indicated Admission indicated?: not indicated Admission Request Was there a request for admission?: No Disposition Plan Disposition Plan: Discharge Discharge Attestation Discharge Attestation: The patient was given an opportunity to ask questions and understood the discharge instructions. Discharge instructions specifically effects, indications for sooner follow up or return to the emergency department, and the expected course of current diagnosis. Patient condition: Stable Discharge Plan Plan Patient Disposition: HOME (Self Care) Discharge Disposition comment: stable Prescriptions/Referrals Prescriptions/Med Rec: New alum-mag hydroxide-simeth [Maalox Maximum Strength] 400-400-40 mg/5 mL suspension 10 ml PO TID PRN (Reason: indigestion) Qty: 3000 0RF azithromycin [Zithromax Z-Sagar] 250 mg tablet See Rx Instructions .ROUTE .COMPLEX Qty: 6 0RF Rx Instructions: For 250 mg dose pack: take 500 mg today (day 1), then 250 mg for 4 days (days 2-5) amoxicillin-pot clavulanate 875-125 mg tablet 1 tab PO BID Qty: 14 0RF No Action losartan 25 mg tablet 25 mg PO QDAY Patient Comments: TAKE 1 TABLET BY MOUTH ONCE A DAY fenofibrate 160 mg tablet 160 mg PO QDAY Patient Comments: TAKE 1 TABLET BY MOUTH DAILY dorzolamide-timolol 22.3-6.8 mg/mL drops 1 drp OPHTHALMIC (EYE) Q12H Patient Comments: INSTILL 1 DROP IN BOTH EYES TWICE DAILY levothyroxine 112 mcg tablet 112 mcg PO QDAY Patient Comments: TAKE 1 TABLET BY MOUTH DAILY latanoprost 0.005 % drops 1 drp OPHTHALMIC (EYE) QPM Patient Comments: INSTILL 1 DROP INTO BOTH EYES EVERY NIGHT AT BEDTIME Problem List Clinical Impression: Pneumonia, Indigestion Patient/Caregiver Discharge Instructions Discharge Activity: activity as tolerated Education Materials: ED Pneumonia (Adult) Additional Instructions: Thank you for the opportunity for serving you today. You are stable for discharged . You are advised to: Follow-up with your PCP in 1 to 2 days Return to ED for worsening of symptoms Increase oral fluids Take medication as prescribed Print Language: German Stand Alone Forms: Brianne Award Info., Patient Portal Info Letter PA/JOSE F Supervising Physician LOGAN/JOSE F Supervising Physician: MD Cristal
[2025-01-24 13:57] LABS: Sed Rate (ESR) 46 mm/hr (0-20)
== END 2025-01-24 13:18 | disposition home or self-care (01) ==
PROVIDERS: Nurse Practitioner Family; Emergency Provider Family Medicine
DX: J18.9 Pneumonia, unspecified organism (principal); E03.9 Hypothyroidism, unspecified; E78.5 Hyperlipidemia, unspecified; I10 Essential (primary) hypertension
CPT/HCPCS: 36415; 71045; 80053; 81001; 83735; 83880; 84439; 84443; 84484; 85025; 85610; 85652; 85730; 86140; 93005; 99283

== ENCOUNTER → 2025-01-28 | Outpatient (CLI) | payer MEDICARE, BC, SELFPAY ==
[2025-01-28 08:43] LABS: Basophils # (Auto) 0.1 Thou/mm3 (0.0-0.2); Basophils % (Auto) 1 % (0-2.5); Eosinophils # (Auto) 0.3 Thou/mm3 (0.0-0.5); Eosinophils % (Auto) 4 % (0-10); Hematocrit 42.2 % (41.0-53.0); Hemoglobin 13.7 g/dL (13.5-16.0); Immature Granulocytes Auto 0.01 Thou/mm3 (0.00-0.00); Lymphocytes # (Auto) 2.0 Thou/mm3 (1.0-4.8); Lymphocytes % (Auto) 30 % (10-50); Mean Corpuscular HGB Conc 32.5 g/dl (31.0-37.0); Mean Corpuscular Hemoglobin 28.3 pg (25.0-35.0); Mean Corpuscular Volume 87 fL (80-100); Monocytes # (Auto) 0.5 Thou/mm3 (0.0-0.8); Monocytes % (Auto) 8 % (0-12); Neutrophils # (Auto) 3.9 Thou/mm3 (1.8-7.7); Neutrophils % (Auto) 58 % (37-80); Nucleated Red Blood Cell # 0.00 Thou/mm3 (0.00-0.00); Nucleated Red Blood Cell % 0 /100 WBC (0); Platelet Count 294 Thou/mm3 (140-440); RDW Standard Deviation 47.1 fL (35.1-43.9); Red Blood Count 4.84 Miln/mm3 (4.50-5.90); White Blood Count 6.7 Thou/mm3 (3.8-10.6)
[2025-01-28 09:04] LABS: Alanine Aminotransferase 59 U/L (10-49); Albumin, Serum 5.0 gm/dL (3.4-4.8); Albumin/Globulin Ratio 1.9 (1.2-2.2); Anion Gap 12 (7-16); Aspartate Amino Transferase 49 U/L (0-34); BUN/Creatinine Ratio 15 Ratio (12-20); Bilirubin,Total 0.8 mg/dL (0.3-1.2); Blood Urea Nitrogen 12 mg/dL (9-23); Calcium 10.4 mg/dL (8.3-10.6); Calcium (Corrected) 10.4 mg/dL (8.5-10.1); Carbon Dioxide 26.3 mMol/L (20.0-31.0); Chloride 103 mMol/L (98-107); Creatinine (Component) 0.8 mg/dL (0.6-1.3); Globulin 2.6 gm/dL (2.3-3.5); Glucose 105 mg/dL (74-106); Osmolality,Calculated 280 (275-295); Potassium 3.8 mMol/L (3.4-5.1); Sodium 141 mMol/L (136-145); Thyroid Stimulating Hormone 0.35 uIU/mL (0.55-4.78); Total Protein 7.6 gm/dL (5.7-8.2); eGFR > 60 See Note
[2025-01-28 09:24] LABS: Alkaline Phosphatase 75 U/L (46-116); Cardiac Risk Estimate 3.5 RATIO (4.0-6.7); Cholesterol 139 mg/dL (132-200); HDL Cholesterol 40 mg/dL (40-60); LDL Cholesterol,Calculated 81 mg/dL (0-130); Triglycerides 89 mg/dL (30-150)
[2025-01-28 09:33] LABS: Collection Type, Urine Clean Catch; Squamous Epithelial Cell,Urine 0 /hpf (0-5)
[2025-01-28 10:04] LABS: Bacteria,Urine Rare; Bilirubin,Urine Negative (Negative); Blood,Urine Negative (Negative); Clarity,Urine Clear (Clear/Hazy); Color,Urine Yellow (Lt Yel-Yel); Glucose, Urine Negative (Negative); Ketones,Urine Negative (Negative); Leukocyte Esterase,Urine Negative (Negative); Nitrite,Urine Negative (Negative); PH,Urine 6.0 (5.0-7.0); Protein,Urine Trace (Neg - Trace); RBC,Urine 4 /hpf (0-3); Specific Gravity,Urine 1.022 (1.001-1.035); Urobilinogen,Urine 2.0 mg/dL (0.0-1.0); WBC,Urine 2 /hpf (0-5)
== END | disposition home or self-care (01) ==
LOC: COPL 07:58
PROVIDERS: PCP Internal Medicine; Referring Provider Internal Medicine; Visit Provider Internal Medicine
DX: I30.9 Acute pericarditis, unspecified (principal); R63.4 Abnormal weight loss; I10 Essential (primary) hypertension; E03.9 Hypothyroidism, unspecified; E78.5 Hyperlipidemia, unspecified
CPT/HCPCS: 36415; 80053; 80061; 81001; 84443; 85025

== ENCOUNTER → 2025-02-03 | Outpatient (CLI) | payer MEDICARE, BC, SELFPAY ==
--- NOTE | 2025-02-03 14:50 | XR_ITS ---
Examination: CT chest, without intravenous contrast. Sagittal and coronal 2-D reconstructions. Exam date and time: February 03, 2025, 1548 hours INDICATIONS: Coughing congestion 2 weeks shortness of breath CTDI:vol (mGy) 7.81 DLP: (mGycm) 273 Technique: Multiple 3.0 mm axial sections of the chest to been obtained. Bone and lung density settings are obtained. Sagittal and coronal 2-D reconstructions have been obtained. Low dose protocols were performed. One or more of the following dose reduction techniques were used; automated exposure control, adjustment of the mA and/or KV according to patient size, use of iterative reconstruction technique. Findings: No thoracic aortic aneurysm dilatation Pulmonary artery segments are not enlarged Pericardial effusion measuring up to 13 mm No mediastinal lymphadenopathy Mild pneumonia left base Minimal left pleural disease No focal liver or splenic lesions No gallstones No pancreatic or adrenal mass Mild thoracic spondylosis IMPRESSION: No mediastinal lymphadenopathy Small pericardial effusion Mild pneumonia left base Minimal left pleural disease
== END | disposition home or self-care (01) ==
LOC: SCAT 14:36
PROVIDERS: PCP Internal Medicine; Referring Provider Internal Medicine; Visit Provider Internal Medicine
DX: I31.39 Other pericardial effusion (noninflammatory) (principal); J18.9 Pneumonia, unspecified organism; R91.8 Other nonspecific abnormal finding of lung field
CPT/HCPCS: 71250

== ENCOUNTER → 2025-02-04 | Outpatient (CLI) | payer MEDICARE, BC, SELFPAY ==
[2025-02-04 09:35] LABS: Coccid Serology, CF (UCD)* See Sep Rpt; Quantiferon-TB* See Sep Rpt
[2025-02-04 10:33] LABS: C-Reactive Protein 4.2 mg/dL (0.0-0.9)
[2025-02-10 19:52] LABS: Albumin 4.3 g/dL (3.8-4.8); Alpha-1-Globulin 0.5 g/dL (0.2-0.3); Alpha-2-Globulin 1.3 g/dL (0.5-0.9); Beta-1-Globulin 0.5 g/dL (0.4-0.6); Beta-2-globulin 0.5 g/dL (0.2-0.5); Gamma Globulin 1.1 g/dL (0.8-1.7)
[2025-02-11 07:40] LABS: ANA Pattern NUCLEAR, HOMOGENEOUS; ANA Screen, IFA POSITIVE (NEGATIVE); ANA Titer 1:40 titer; CA 19-9 Antigen* 10 U/mL (<34); Myeloperoxidase Ab <1.0 AI (<1.0); Protein, total, serum 8.2 g/dL (6.1-8.1); Proteinase-3 Ab <1.0 AI (<1.0)
== END | disposition home or self-care (01) ==
PROVIDERS: PCP Internal Medicine; Referring Provider Internal Medicine; Visit Provider Internal Medicine
DX: R63.4 Abnormal weight loss (principal); E83.52 Hypercalcemia; K30 Functional dyspepsia; E03.9 Hypothyroidism, unspecified
CPT/HCPCS: 36415; 84155; 84165; 86021; 86036; 86038; 86140; 86171; 86301; 86334; 86480

== ENCOUNTER → 2025-02-14 | Outpatient (CLI) | payer MEDICARE, BC, SELFPAY ==
--- NOTE | 2025-02-14 08:45 | XR_ITS ---
EXAMINATION: PET/CT FUSION SKULL TO THIGH EXAM DATE AND TIME: February 14, 2025, 1001 hours, comparison CT chest February 03, 2025, CT abdomen pelvis December 15, 2024 INDICATIONS: Abnormal weight loss months CTDI:vol (mGy) 2.14 DLP: (mGycm) 195.88 PROCEDURE: 13.56 mCi FDG was administered intravenously To allow for distribution and uptake of radiotracer, the patient was allowed to rest quietly in a shielded room. Imaging was performed on an integrated 16-slice PET/CT scanner, with scanning from the skull base to the mid thigh. Serum blood glucose at the time of the injection was measured 107 mg/dL. CT scanning was performed without oral or intravenous contrast material. FINDINGS: Head and Neck: There is no manfred hypermetabolism in the neck. The visualized portions of the brain are normal in appearance on CT. Chest: There is no manfred hypermetabolism in the chest. There are no pulmonary nodules. Small pericardial effusion Abdomen and Pelvis: There is no manfred hypermetabolism in retroperitoneal or pelvic chains. The spleen is normal in size and FDG avidity. Musculoskeletal: Marrow uptake is within normal range. IMPRESSION: No abnormal hypermetabolic activity
== END | disposition home or self-care (01) ==
PROVIDERS: PCP Internal Medicine; Referring Provider Internal Medicine; Visit Provider Internal Medicine
DX: R91.1 Solitary pulmonary nodule (principal); R63.4 Abnormal weight loss; R30.0 Dysuria
CPT/HCPCS: 78815; A9552